=== PATIENT | female | born 1955 | race Caucasian/White ===

== ENCOUNTER 2016-11-16 10:52 | Emergency (ER) | payer OTHER ==
[~2016-11-16] VITALS: Ht 165.1 cm; Wt 75.0 kg
[~2016-11-16 10:52] MED LIST: HYDR-902 PO; LORA1TAB PO; METO10TA92 PO; PANT40TA4 PO; POTA10TA37 PO; SUCR1TAB27 PO
[2016-11-16 11:02] VITALS: Ht 165.1 cm; Wt 75.0 kg
[2016-11-16] MEDS ORDERED: SOD CHLORIDE 0.9% 1,000 ML IV STA (11:29)
[2016-11-16] MEDS ORDERED: ONDANSETRON 4 MG INJ IV STA (11:29)
[2016-11-16] MEDS ORDERED: HYDROmorphONE 1 MG/ML SYG IV STA (11:29)
[2016-11-16 11:58] LABS: ADD SCAN DIFF NO
[2016-11-16 12:09] LABS: BASOPHIL # 0.1 10^3/ul (0.0-0.1); BASOPHILS % 0.3 % (0.0-2.0); HEMATOCRIT 42.6 % (37.0-47.0); HEMOGLOBIN 14.4 g/dl (12.0-16.0); LYMPHOCYTES # 1.2 10^3/ul (0.8-2.9); LYMPHOCYTES % 7.3 % (15.0-51.0); MEAN CORPUSCULAR HEMOGLOBIN 30.1 pg (29.0-33.0); MEAN CORPUSCULAR HGB CONC 33.8 g/dl (32.0-37.0); MEAN CORPUSCULAR VOLUME 88.9 fl (82.0-101.0); MEAN PLATELET VOLUME 9.5 fl (7.4-10.4); MONOCYTE # 0.5 10^3/ul (0.3-0.9); PLATELET COUNT 446 10^3/UL (140-415); RED BLOOD COUNT 4.79 10^6/ul (4.20-5.40); RED CELL DISTRIBUTION WIDTH 14.4 % (11.5-14.5); WHITE BLOOD COUNT 15.7 10^3/ul (4.8-10.8)
[2016-11-16 12:10] LABS: ALBUMIN 5.2 g/dl (3.3-4.9)
[2016-11-16 12:11] LABS: POTASSIUM 3.2 mmol/L (3.5-5.1)
[2016-11-16 12:13] LABS: ALBUMIN/GLOBULIN RATIO 1.67; BILIRUBIN,INDIRECT 0.8 mg/dl (0-1.1); BILIRUBIN,TOTAL 0.8 mg/dl (0.2-1.3); CREATININE 0.69 mg/dl (0.44-1.00); TOTAL PROTEIN 8.3 g/dl (6.1-8.1)
[2016-11-16 12:14] LABS: CALCIUM 10.3 mg/dl (8.4-10.2)
[2016-11-16] MEDS ORDERED: POTASSIUM CHLORIDE (SR) 20 MEQ TAB PO STA (12:50)
[2016-11-16] MEDS ORDERED: ONDA4TAB14 PO (12:52)
[2016-11-16 13:21] VITALS: BP 183/106; PULSE 105; RESP 16; TEMP 98.1
--- NOTE | 2016-11-16 13:54 | ERD ---
ER Documentation Chief Complaint Date/Time DATE: 11/16/16 TIME: 13:47 Chief Complaint SEVERE VOMITING,ABDDOMINAL CRAMPING,HIGH BLOOD PRESSURE HPI 61-year-old woman presents with abdominal cramping, multiple episodes of clear nonbloody nonbilious emesis similar to previous episodes. She does have a long history of cyclic vomiting syndrome and opioid dependence. She denies hematemesis, no blood per rectum, no melena, no chest pain or shortness of breath. ROS All systems reviewed and are negative except as per history of present illness. Medications Home Meds Active Scripts Ondansetron (Ondansetron Odt) 4 Mg Tab.rapdis, 4 MG PO Q6H Y for NAUSEA AND/OR VOMITING, #12 TAB Prov:CB ROSS MD 11/16/16 Discontinued Scripts Lorazepam* (Lorazepam*) 1 Mg Tablet, 1 MG PO Q8H Y for VOMITTING, #10 TAB Prov:TAMARA PACK MD 07/08/16 Potassium Chloride* (K-Dur*) 10 Meq Tab.prt.sr, 10 MEQ PO BID, #10 Prov:TATUM SHEPADR DO 07/07/16 Hydrocodone/Acetaminophen ([place] 10-325 Tablet) 1 Each Tablet, 1 EACH PO Q8, # 20 TAB Prov:TATUM SHEPARD DO 07/07/16 Metoclopramide* (Reglan*) 10 Mg Tablet, 10 MG PO Q6 Y for NAUSEA AND/OR VOMITING , #15 TAB Prov:TATUM SHEPARD DO 07/07/16 Sucralfate (Carafate) 1 Gm Tablet, 1 GM PO QID for 30 Days, TAB Prov:SANDRA GARDNER NP 06/30/16 Pantoprazole* (Pantoprazole*) 40 Mg Tabec, 40 MG PO BID@06,18, #60 TAB 1 Refill Prov:VIC SAUCEDO MD 12/07/15 Allergies Allergies: Coded Allergies: banana (Verified Allergy, Severe, Anaphylactic, 11/16/16) Contact Dermatitis then Anaphylactic Reaction milk (Verified Allergy, Intermediate, Sinus Reaction and Lower Intestinal distress, 11/16/16) tetracycline (Verified Allergy, Mild, 11/16/16) PMhx/Soc Cyclic vomiting syndrome, opioid dependence, chronic pain syndrome, gastritis, anxiety, recurrent hypokalemia History of Surgery: Yes (ortho surgery: plate on right ankle and screws) Anesthesia Reaction: No Hx Neurological Disorder: No Hx Respiratory Disorders: No Hx Cardiac Disorders: No Hx Psychiatric Problems: No Hx Miscellaneous Medical Probl: Yes (cyclic vomiting) Hx Alcohol Use: Yes (occasional) Hx Substance Use: Yes (USE OF MEDICAL MARIJUANA) Hx Tobacco Use: Yes Smoking Status: Current every day smoker FmHx Family History: No diabetes Physical Exam Vitals Vital Signs Date Time Temp Pulse Resp B/P Pulse Ox O2 Delivery O2 Flow Rate FiO2 11/16/16 13:21 98.1 105 16 183/106 100 Room Air 11/16/16 11:02 97.0 100 18 202/112 98 Physical Exam GENERAL: Well-developed, well-nourished, dehydrated HEENT: Dry mucous membranes, pink conjunctiva, no cervical spine tenderness or step-off deformities, no goiter, no jaundice or icterus, extraocular movements intact without pain. No submandibular induration, and no pharyngeal erythema NEURO: Alert and oriented 3, cranial nerves II through XII intact bilaterally, pupils equal round reactive to light, no focal deficits or facial asymmetry, sensation intact distally Strength 5/5 in upper and lower extremities bilaterally CARDIAC: Regular rate and rhythm, no murmurs rubs or gallops LUNGS: Clear bilaterally no wheezing crackles or stridor ABDOMEN: Soft nontender, no guarding, no rigidity, no rebound, no psoas sign no obturator sign. Normoactive bowel sounds SKIN: Warm and dry to touch, no abrasions, contusions, or hematomas, no lacerations, no ecchymosis, no target lesions, and without ulcers EXTREMITIES: No clubbing cyanosis or edema, calves are bilaterally symmetrical, no Homans sign, no popliteal cord sign. Distal pulses equal and bilateral PSYCH: Normal affect without agitation or irritability Result Diagram: 11/16/16 1145 11/16/16 1145 Results 24 hrs Laboratory Tests Test 11/16/16 11:45 White Blood Count 15.710^3/ul Red Blood Count 4.7910^6/ul Hemoglobin 14.4g/dl Hematocrit 42.6% Mean Corpuscular Volume 88.9fl Mean Corpuscular Hemoglobin 30.1pg Mean Corpuscular Hemoglobin Concent 33.8g/dl Red Cell Distribution Width 14.4% Platelet Count 00811^3/UL Mean Platelet Volume 9.5fl Neutrophils % 89.0% Lymphocytes % 7.3% Monocytes % 3.0% Eosinophils % 0.0% Basophils % 0.3% Nucleated Red Blood Cells % 0.0/100WBC Neutrophils # 14.010^3/ul Lymphocytes # 1.210^3/ul Monocytes # 0.510^3/ul Eosinophils # 0.010^3/ul Basophils # 0.110^3/ul Nucleated Red Blood Cells # 0.010^3/ul Sodium Level 146mmol/L Potassium Level 3.2mmol/L Chloride Level 104mmol/L Carbon Dioxide Level 22mmol/L Anion Gap 23 Blood Urea Nitrogen 12mg/dl Creatinine 0.69mg/dl Glucose Level 118mg/dl Calcium Level 10.3mg/dl Total Bilirubin 0.8mg/dl Direct Bilirubin 0.00mg/dl Indirect Bilirubin 0.8mg/dl Aspartate Amino Transf (AST/SGOT) 28IU/L Alanine Aminotransferase (ALT/SGPT) 33IU/L Alkaline Phosphatase 114IU/L Total Protein 8.3g/dl Albumin 5.2g/dl Globulin 3.10g/dl Albumin/Globulin Ratio 1.67 Lipase 122U/L Current Medications Medications (Trade) Dose Ordered Sig/Estee Route PRN Reason Start Time Stop Time Status Last Admin Dose Admin Sodium Chloride (NS) 1,000 ml @ 1,000 mls/hr Q1H STAT IV 11/16/16 11:29 11/16/16 12:28 DC 11/16/16 11:52 Hydromorphone HCl (Dilaudid) 1 mg ONCE STAT IV 11/16/16 11:29 11/16/16 11:30 DC 11/16/16 11:52 Ondansetron HCl (Zofran Inj) 4 mg ONCE STAT IV 11/16/16 11:29 11/16/16 11:30 DC 11/16/16 11:52 Potassium Chloride (Klor-Con 20) 60 meq ONCE STAT PO 11/16/16 12:50 11/16/16 12:52 DC 11/16/16 13:01 Procedures/[facility] IV line was established patient was placed on behavioral consultant rhythm strip revealed a sinus tachycardia at about 100 bpm with upright P and T waves. Patient was afebrile. I administered 1 L normal saline intravenously for dehydration and tachycardia as well as hydromorphone 1 mg IV and Zofran 4 mg IV with good effect. Patient' s pain and tachycardia resolved. CBC revealed a reactive leukocytosis at 16, electrolytes revealed hypokalemia 3.2, liver function tests were normal, lipase was normal. I administered potassium chloride 60 mg p.o. which she tolerated. I reviewed her past medical history and previous imaging studies. Patient has had at least 7 CT scans of the abdomen and pelvis which have been unremarkable. Further CT imaging at this point is contraindicated, I feel the risks at this time outweigh the benefits. Ultrasound or MR imaging is not warranted at this time, and could not be justified, given the patient's physical examination and response to treatment. Abdominal examination was repeated by me after medications were administered and just prior to discharge. Belly is soft she has no rigidity or guarding. I spoke to the patient regarding her workup today although she has chronic recurrent symptoms and will most likely return for continued ED IV therapy. I feel she is seeking admission although at this time I have no indication for any further intervention, imaging, or admission. Differential diagnoses considered, included but not limited to acute coronary syndrome, pulmonary embolism, aortic dissection, abdominal aortic aneurysm, sepsis, stroke, meningitis, encephalitis, pneumonia, appendicitis, cholecystitis , bowel obstruction, pyelonephritis, nephrolithiasis, cystitis, as well as metabolic, hematologic, and electrolyte abnormalities. As well as abscess, cellulitis, fractures, and dislocations. Patient feels much better at this time, and vital signs are normal, symptoms have improved. I did give strict instructions to return to the ED if symptoms continue or worsen, patient will otherwise follow-up with primary care physician. Patient understood instructions and agreed to plan. Departure Diagnosis: Primary Impression: Hypokalemia Additional Impressions: Chronic pain Chronic pain type: chronic pain syndrome Qualified Code: G89.4 - Chronic pain syndrome Cyclic vomiting syndrome Vomiting Intractability: non-intractable Nausea presence: with nausea Qualified Code: G43.A0 - Non-intractable cyclical vomiting with nausea Dehydration Condition: Good Patient Instructions: Hypokalemia, Vomiting (6Y-Adult) CB ROSS MD Nov 16, 2016 13:54
== END 2016-11-16 14:00 | disposition home or self-care (01) ==
LOC: E/R 10:52
DX: E87.6 Hypokalemia (principal); G89.4 Chronic pain syndrome; G43.A0 Cyclical vomiting, in migraine, not intractable; F17.210 Nicotine dependence, cigarettes, uncomplicated
CPT/HCPCS: 36415; 80053; 83690; 85025; 96374; 96375; J1170; J2405; J7030; Z7502; Z7610

== ENCOUNTER 2017-01-21 09:48 | Inpatient (IN) | payer OTHER ==
[~2017-01-21] VITALS: Ht 165.1 cm; Wt 70.0 kg
[~2017-01-21 09:48] MED LIST changes: -HYDR-902 PO; -LORA1TAB PO; -METO10TA92 PO; +ONDA4TAB14 PO; -PANT40TA4 PO; -POTA10TA37 PO; -SUCR1TAB27 PO
[2017-01-21] MEDS ORDERED: HYDROmorphONE 1 MG/ML SYG IV STA (09:57)
[2017-01-21] MEDS ORDERED: SOD CHLORIDE 0.9% 1,000 ML IV STA (09:57)
[2017-01-21] MEDS ORDERED: ONDANSETRON 4 MG INJ IV STA (09:57)
[2017-01-21 10:19] LABS: ADD SCAN DIFF NO
[2017-01-21 10:33] LABS: ABNORMAL IP MESSAGE 1; HEMATOCRIT 43.6 % (37.0-47.0); HEMOGLOBIN 15.5 g/dl (12.0-16.0); MEAN CORPUSCULAR HEMOGLOBIN 30.4 pg (29.0-33.0); MEAN CORPUSCULAR HGB CONC 35.6 g/dl (32.0-37.0); MEAN CORPUSCULAR VOLUME 85.5 fl (82.0-101.0); MEAN PLATELET VOLUME 9.8 fl (7.4-10.4); PLATELET COUNT 467 10^3/UL (140-415); RED CELL DISTRIBUTION WIDTH 13.8 % (11.5-14.5); WHITE BLOOD COUNT 25.2 10^3/ul (4.8-10.8)
[2017-01-21 10:46] LABS: ALBUMIN 5.2 g/dl (3.3-4.9)
[2017-01-21 10:47] LABS: POTASSIUM 3.2 mmol/L (3.5-5.1)
[2017-01-21 10:49] LABS: BILIRUBIN,INDIRECT 0.9 mg/dl (0-1.1); BILIRUBIN,TOTAL 0.9 mg/dl (0.2-1.3); CREATININE 1.23 mg/dl (0.44-1.00)
[2017-01-21 10:50] LABS: ALBUMIN/GLOBULIN RATIO 1.48; CALCIUM 10.1 mg/dl (8.4-10.2); TOTAL PROTEIN 8.7 g/dl (6.1-8.1)
--- NOTE | 2017-01-21 11:06 | ERA ---
ER Documentation Chief Complaint Date/Time DATE: 01/21/17 TIME: 953 Chief Complaint pt bib with c/o vomiting and abd pain since this am hx same HPI 61-year-old female presents the emergency department complaining of epigastric abdominal pain. Patient has a long-standing history of recurrent pancreatitis secondary to alcoholism. Patient states that she continues to drink alcohol. Her last drink was 2 nights ago. She now complains of epigastric abdominal pain that she describes as 10/10. Pain is associated with nonbilious nonbloody emesis. Patient denies any fevers chills. Patient has no diarrhea or urinary symptoms. Patient's pain does not radiate and is similar to what she has had in the past. ROS All systems reviewed and are negative except as per history of present illness. Medications Home Meds Discontinued Scripts Ondansetron (Ondansetron Odt) 4 Mg Tab.rapdis, 4 MG PO Q6H Y for NAUSEA AND/OR VOMITING, #12 TAB Prov:CB ROSS MD 11/16/16 Allergies Allergies: Coded Allergies: banana (Verified Allergy, Severe, Anaphylactic, 01/21/17) Contact Dermatitis then Anaphylactic Reaction milk (Verified Allergy, Intermediate, Sinus Reaction and Lower Intestinal distress, 01/21/17) tetracycline (Verified Allergy, Mild, 01/21/17) PMhx/Soc History of Surgery: No Anesthesia Reaction: No Hx Neurological Disorder: No Hx Respiratory Disorders: No Hx Cardiac Disorders: No Hx Psychiatric Problems: No Hx Miscellaneous Medical Probl: Yes Hx Alcohol Use: No Hx Substance Use: No Hx Tobacco Use: No Smoking Status: Never smoker FmHx Noncontributory for chief complaint Physical Exam Vitals Vital Signs Date Time Temp Pulse Resp B/P Pulse Ox O2 Delivery O2 Flow Rate FiO2 01/21/17 09:50 97.3 78 16 150/81 98 Physical Exam GENERAL: Patient is well-developed well-nourished and appears uncomfortable HEENT: Pupils equal, round, and reactive to light. EOMI. There is no scleral icterus. NECK: C-spine is soft and supple, there is no meningismus. There is no cervical lymphadenopathy. LUNGS: Clear to auscultation bilaterally. There are no rales, wheezes or rhonchi. HEART: Regular rate and rhythm, no murmurs, clicks, rubs or gallops. ABDOMEN: Soft, nondistended. Normal active bowel sounds. Minimal tenderness without peritoneal signs diffusely about the abdomen EXTREMITIES: There is no peripheral cyanosis or edema. No focal swelling or erythema. NEURO: The patient moves all four extremities with 5/5 strength. Cranial nerves II - XII are intact. Normal gait. Alert and oriented SKIN: There is no apparent rash or petechiae. HEME/LYMPHATIC: There is no evidence of excessive bruising or lymphedema. PSYCHIATRIC: The patient does not appear anxious or depressed. Result Diagram: 01/21/17 1005 01/21/17 1005 Results 24 hrs Laboratory Tests Test 01/21/17 10:05 White Blood Count 25.210^3/ul Red Blood Count 5.1010^6/ul Hemoglobin 15.5g/dl Hematocrit 43.6% Mean Corpuscular Volume 85.5fl Mean Corpuscular Hemoglobin 30.4pg Mean Corpuscular Hemoglobin Concent 35.6g/dl Red Cell Distribution Width 13.8% Platelet Count 36033^3/UL Mean Platelet Volume 9.8fl Sodium Level 134mmol/L Potassium Level 3.2mmol/L Chloride Level 89mmol/L Carbon Dioxide Level 30mmol/L Anion Gap 18 Blood Urea Nitrogen 30mg/dl Creatinine 1.23mg/dl Glucose Level 125mg/dl Calcium Level 10.1mg/dl Total Bilirubin 0.9mg/dl Direct Bilirubin 0.00mg/dl Indirect Bilirubin 0.9mg/dl Aspartate Amino Transf (AST/SGOT) 44IU/L Alanine Aminotransferase (ALT/SGPT) 39IU/L Alkaline Phosphatase 109IU/L Total Protein 8.7g/dl Albumin 5.2g/dl Globulin 3.50g/dl Albumin/Globulin Ratio 1.48 Lipase 824U/L Current Medications Medications (Trade) Dose Ordered Sig/Estee Route PRN Reason Start Time Stop Time Status Last Admin Dose Admin Sodium Chloride (NS) 1,000 ml @ 1,000 mls/hr Q1H STAT IV 01/21/17 09:57 01/21/17 10:56 DC 01/21/17 10:17 Hydromorphone HCl (Dilaudid) 1 mg ONCE STAT IV 01/21/17 09:57 01/21/17 09:59 DC 01/21/17 10:15 Ondansetron HCl (Zofran Inj) 4 mg ONCE STAT IV 01/21/17 09:57 01/21/17 09:59 DC 01/21/17 10:15 Procedures/MDM Patient was taken to a room, seen and evaluated. Comfort measures were initiated. Diagnostic tests were ordered and reviewed. 3 LEAD RHYTHM STRIP: Sinus tachycardia RADIOLOGY: reviewed with the radiologist CONSULTATION: hospitalist was notified for admission REEVALUATION: Patient was reevaluated after pain medication. She appear to be somewhat more comfortable. Her labs were reviewed indicating evidence of significant [place]'s criteria and arrangements were made for admission to the hospital. MEDICAL DECISION MAKIN-year-old female with recurrent abdominal pain related to what is been described as cyclic vomiting syndrome, marijuana abuse as well as recurrent episodes of pancreatitis presents to the emergency room with abdominal pain of uncertain etiology. Differential diagnosis entertained was broad and potential high acuity, but ultimately the patient shows evidence of recurrent pancreatitis. Of concern is her significant elevated white blood cell count indicating fairly significant [place]'s criteria. Patient will be admitted to the hospital for further observation, GI rest, monitoring and further treatment. Departure Diagnosis: Primary Impression: Pancreatitis Condition: RPINCESS [place] January 21, 2017 11:06
--- NOTE | 2017-01-21 11:29 | RADRPT ---
PROCEDURE: XR Chest. CLINICAL INDICATION: Abdominal pain, possible aspiration TECHNIQUE: Single frontal view of the chest was obtained COMPARISON: 06/28/2016 FINDINGS: The heart and mediastinum are within normal limits. The lungs are clear. There is no pleural effusion or pneumothorax. The bones and soft tissue show no acute change. IMPRESSION: No acute abnormalities are identified on this single view. RPTAT:AAJJ Physician [place] Date Time Electronically viewed and signed by Stephon Maldonado Physician on 01/21/2017 11:29 BILL/
[2017-01-21] MEDS ORDERED: PANTOPRAZOLE 40 MG INJ IV ONE (11:30)
[2017-01-21] MEDS ORDERED: morphine 2 MG INJ IV PRN (11:30)
[2017-01-21] MEDS ORDERED: ACETAMINOPHEN 325 MG TAB PO PRN (11:30)
[2017-01-21] MEDS ORDERED: MAGNESIUM HYDROXIDE 30ML CUP PO PRN (11:30)
[2017-01-21] MEDS ORDERED: NACL 0.9% 3 ML SYG IV SCH (11:30)
[2017-01-21] MEDS ORDERED: ACETAMINOPHEN 650 MG SUPP PR PRN (11:30)
[2017-01-21] MEDS ORDERED: BISACODYL 10 MG SUPP PR PRN (11:30)
[2017-01-21] MEDS ORDERED: DOCUSATE SODIUM 100 MG CAP PO PRN (11:30)
[2017-01-21] MEDS ORDERED: HYDROCODONE/APAP (5/325) TAB PO PRN ×2 (11:30)
[2017-01-21] MEDS ORDERED: ONDANSETRON 4 MG INJ IV PRN (11:30)
[2017-01-21 13:00] VITALS: TEMP 98.3
[2017-01-21 13:14] VITALS: BP 121/82; PULSE 87; RESP 18
[2017-01-21 13:16] VITALS: Ht 165.1 cm; Wt 70.0 kg
[2017-01-21 15:34] VITALS: BP 103/64; RESP 18
[2017-01-21] MEDS: SOD CHLORIDE 0.9% 1,000 ML IV SCH ×2 (16:00→19:25)
--- NOTE | 2017-01-21 16:11 | HP ---
Date/Time of Note Date/Time of Note DATE: 01/21/17 TIME: 16:02 Assessment/Plan VTE Prophylaxis VTE Prophylaxis Intervention: SCD's Lines/Catheters IV Catheter Type (from [facility]): [place] Urinary Cath still in place: No Assessment/Plan Chief Complaint/Hosp Course Impression and plan 1. Acute pancreatitis. Suspect alcohol induced. Will place on IV hydration. Follow-up on lipase levels. Will advance diet as tolerated. Continue with analgesics as needed for pain. 2. Leukocytosis likely secondary to #1. Afebrile at present. Will monitor for now. 3. Hypokalemia. Will provide with potassium supplement and replete as needed 4. Acute kidney injury. Likely dehydration. Continue IV hydration. Will monitor for now. Admission process 40 minutes Discussed plan of care with Dr. Posadas Problems: HPI/ROS Admit Date/Time Admit Date/Time January 21, 2017 at 11:12 Hx of Present Illness This is a 61-year-old female with no reported past medical history who came to [facility] due to reports of abdominal pain. According to the patient she started to have abdominal pain at 4:30 in the morning on December. She did report having 2 alcoholic beverages with beer on January 19, 2017. She does report that she does drink 2 beers a day but not consistently. She denies any history of dyslipidemia. She did report that she did have some associated nausea and vomiting nonbilious nonbloody. She did report her pain progressively got worse and subsequently went to [facility] for further evaluation. Upon examination she did have a chest x-ray that did show her to have no acute abnormalities. Additionally she did have lab work done that did show her to have a lipase of 824. Also notably she had a potassium of 3.2 and his creatinine of 1.23. She also had some white count of 25.2 although she remained afebrile. Likely inflammatory process. Currently the patient does report no further abdominal pain. She does report feeling little dizzy but no other specific complaints. We will evaluate her for the aformentiond issues ROS 12 point review of systems obtained and entirely negative except that mentioned in the history of present illness PMH/Family/Social Past Medical History Medical History: no pertinent history Past Surgical History Past Surgical Hx: no surgical history, other Family History Significant Family History: no pertinent family hx Social History Alcohol Use: occasionally Smoking Status: Former smoker Drug Use: none Exam/Review of Systems Vital Signs Vitals Vital Signs Date Time Temp Pulse Resp B/P Pulse Ox O2 Delivery O2 Flow Rate FiO2 01/21/17 15:34 98.6 82 18 103/64 94 01/21/17 13:14 Room Air 01/21/17 11:00 2.0 Exam Constitutional: alert, oriented Psych: no complaints Neck: supple, No jvd Respiratory: clear to auscultation, normal air movement Cardiovascular: regular rate and rhythm Gastrointestinal: soft, tender (Minimal) Musculoskeletal: nl extremities to inspection Extremities: normal pulses Labs Result Diagram: 01/21/17 1005 01/21/17 1005 Medications Medications Current Medications Sodium Chloride (NS) 1,000 ml @ 125 mls/hr Q8H IV ; Start 01/21/17 at 11:25 Ondansetron HCl (Zofran Inj) 4 mg Q6H PRN IV NAUSEA AND/OR VOMITING; Start at 11:30 Acetaminophen (Tylenol Tab) 650 mg Q6H PRN PO PAIN LEVEL 1-3 OR FEVER; Start at 11:30 Acetaminophen (Tylenol Supp) 650 mg Q6H PRN MS PAIN LEVEL 1-3 OR FEVER; Start 01/21/17 at 11:30 Acetaminophen/ Hydrocodone Bitart ([place] (5/325)) 1 tab Q6H PRN PO MODERATE PAIN LEVEL 4-6; Start 01/21/17 at 11:30 Acetaminophen/ Hydrocodone Bitart ([place] (5/325)) 2 tab Q6H PRN PO SEVERE PAIN LEVEL 7-10; Start 01/21/17 at 11:30 Morphine Sulfate (morphine) 2 mg Q4H PRN IV SEVERE PAIN LEVEL 7-10; Start 01/21 at 11:30 Docusate Sodium (Colace) 100 mg Q12H PRN PO CONSTIPATION; Start 01/21/17 at 11: 30 Magnesium Hydroxide (Milk Of Mag) 30 ml DAILY PRN PO CONSTIPATION; Start at 11:30 Bisacodyl (Dulcolax Supp) 10 mg DAILY PRN [place] CONSTIPATION; Start 01/21/17 at 11 :30 Pantoprazole 40 mg 40 mg DAILY@06 IV ; Start 01/22/17 at 06:00 Potassium Chloride (KCl 40 MEQ/250 ML NS) 250 ml @ 62.5 mls/hr ONCE ONCE IVPB ; Start 01/21/17 at 16:00; Stop 01/21/17 at 19:59; Status UNV REGIDORSANDRA January 21, 2017 16:11
[2017-01-21] MEDS ORDERED: POTASSIUM CHLORIDE 250 ML IVPB SCH (17:00)
[2017-01-21 19:44] VITALS: BP 100/63; RESP 18
[2017-01-22 00:06] VITALS: BP 128/76; RESP 18
[2017-01-22] MEDS: SOD CHLORIDE 0.9% 1,000 ML IV SCH ×4 (03:25→20:30)
[2017-01-22 04:18] VITALS: BP 125/70; RESP 18
[2017-01-22] MEDS: PANTOPRAZOLE 40 MG INJ IV SCH (05:22)
[2017-01-22 07:18] LABS: ADD UMIC YES; URINE BILIRUBIN (Dip) NEGATIVE (NEGATIVE); URINE BLOOD (Dip) 3+ (NEGATIVE); URINE COLOR LT. YELLOW (YELLOW); URINE GLUCOSE (Dip) NEGATIVE (NEGATIVE); URINE KETONES (Dip) 15 (NEGATIVE); URINE LEUKOCYTE ESTERASE (Dip) NEGATIVE (NEGATIVE); URINE NITRITE (Dip) NEGATIVE (NEGATIVE); URINE TOTAL PROTEIN (Dip) NEGATIVE (NEGATIVE); URINE UROBILINOGEN (Dip) 0.2 E.U./dL (0.1-1.0)
[2017-01-22 07:40] LABS: CALCIUM 8.8 mg/dl (8.4-10.2); CREATININE 0.85 mg/dl (0.44-1.00); MAGNESIUM 2.4 mg/dl (1.7-2.5); PHOSPHORUS 2.6 mg/dl (2.5-4.9); POTASSIUM 3.8 mmol/L (3.5-5.1)
[2017-01-22 07:41] LABS: ALBUMIN 3.8 g/dl (3.3-4.9); ALBUMIN/GLOBULIN RATIO 1.52; CHOL/HDL RATIO 3.2 RATIO; TOTAL PROTEIN 6.3 g/dl (6.1-8.1)
[2017-01-22 07:43] LABS: T3 UPTAKE 39.6 % (23.5-40.5)
[2017-01-22 07:45] LABS: SQUAMOUS EPITHELIAL CELL,UR FEW
[2017-01-22 07:49] VITALS: BP 139/86; RESP 18
[2017-01-22 07:57] LABS: THYROID STIMULATING HORMONE 1.17 MIU/L (0.465-4.680)
[2017-01-22 11:48] VITALS: BP 122/79; RESP 18
--- NOTE | 2017-01-22 15:38 | PN ---
Date/Time of Note Date/Time of Note DATE: 01/22/17 TIME: 15:29 Assessment/Plan VTE Prophylaxis VTE Prophylaxis Intervention: SCD's Lines/Catheters IV Catheter Type (from Nrs): Peripheral IV Urinary Cath still in place: No Assessment/Plan Assessment/Plan 1. Acute pancreatitis, no abdominal pain today, start diet 2. Leukocytosis likely secondary to #1. Afebrile at present. follow up with CBC 3. Hypokalemia. corrected 4. Acute kidney injury. Likely dehydration. resolved Subjective 24 Hr Interval Summary Free Text/Dictation no abdominal pain, no nausea or vomiting. Exam/Review of Systems Vital Signs Vitals Vital Signs Date Time Temp Pulse Resp B/P Pulse Ox O2 Delivery O2 Flow Rate FiO2 01/22/17 11:48 98.7 80 18 122/79 95 01/22/17 10:17 Room Air 01/21/17 11:00 2.0 Exam Constitutional: alert, oriented, well developed Psych: nl mood/affect, no complaints Head: atraumatic, normocephalic Eyes: EOMI, nl conjunctiva, nl lids ENMT: nl external ears & nose, nl lips & teeth, nl nasal mucosa & septum Neck: non-tender, supple Respiratory: clear to auscultation, normal air movement, No congested cough, No crackles/rales, No diminished breath sounds, No intercostal retraction, No labored breathing, No other, No respirations, No tactile fremitus, No wheezing Cardiovascular: nl pulses, regular rate and rhythm, No S3, No S4, No bruits, No diastolic murmur, No edema, No gallop, No irregular rhythm, No jugular venous distention (JVD), No murmurs/extra sounds, No other, No rub, No systolic murmur Gastrointestinal: nl liver, spleen, non-tender, soft, No ascites, No bowel sounds, No distended, No firm, No hepatomegaly, No mass , No other, No rebound or guarding, No splenomegaly, No surgical scars, No tender Musculoskeletal: nl extremities to inspection Extremities: normal pulses, No calf tenderness, No clubbing, No cyanosis, No edema, No other, No palpable cord, No pitting pedal edema, No tenderness Neurological: RECREATIONAL THERAPIST II-XII intact, nl mental status, nl speech, nl strength Skin: nl turgor Lymph: nl lymph nodes Results Result Diagram: 01/21/17 1005 01/22/17 0610 Results 24 hrs Laboratory Tests Test 01/22/17 06:10 Sodium Level 138 Potassium Level 3.8 Chloride Level 99 # Carbon Dioxide Level 28 Anion Gap 15 Blood Urea Nitrogen 18 # Creatinine 0.85 Glucose Level 77 # Hemoglobin A1c 5.8 Calcium Level 8.8 Phosphorus Level 2.6 Magnesium Level 2.4 Total Bilirubin 1.0 Direct Bilirubin 0.00 Indirect Bilirubin 1.0 Aspartate Amino Transf (AST/SGOT) 33 Alanine Aminotransferase (ALT/SGPT) 39 Alkaline Phosphatase 77 Total Protein 6.3 # Albumin 3.8 # Globulin 2.50 Albumin/Globulin Ratio 1.52 Triglycerides Level 215 H Cholesterol Level 199 LDL Cholesterol, Calculated 94 HDL Cholesterol 62 Cholesterol/HDL Ratio 3.2 Thyroid Stimulating Hormone (TSH) 1.170 Free Thyroxine Index 3.13 Thyroxine (T4) 7.9 Triiodothyronine (T3) Uptake 39.6 Medications Medications Current Medications Sodium Chloride (NS) 1,000 ml @ 125 mls/hr Q8H IV Last administered on 10:14; Admin Dose 125 MLS/HR; Start 01/21/17 at 11:25 Ondansetron HCl (Zofran Inj) 4 mg Q6H PRN IV NAUSEA AND/OR VOMITING Last administered on 01/22/17 06:31; Admin Dose 4 MG; Start 01/21/17 at 11:30 Acetaminophen (Tylenol Tab) 650 mg Q6H PRN PO PAIN LEVEL 1-3 OR FEVER; Start at 11:30 Acetaminophen (Tylenol Supp) 650 mg Q6H PRN [place] PAIN LEVEL 1-3 OR FEVER; Start 01/21/17 at 11:30 Acetaminophen/ Hydrocodone Bitart ([place] (5/325)) 1 tab Q6H PRN PO MODERATE PAIN LEVEL 4-6; Start 01/21/17 at 11:30 Acetaminophen/ Hydrocodone Bitart ([place] (5/325)) 2 tab Q6H PRN PO SEVERE PAIN LEVEL 7-10; Start 01/21/17 at 11:30 Morphine Sulfate (morphine) 2 mg Q4H PRN IV SEVERE PAIN LEVEL 7-10; Start 01/21 at 11:30 Docusate Sodium (Colace) 100 mg Q12H PRN PO CONSTIPATION; Start 01/21/17 at 11: 30 Magnesium Hydroxide (Milk Of Mag) 30 ml DAILY PRN PO CONSTIPATION; Start at 11:30 Bisacodyl (Dulcolax Supp) 10 mg DAILY PRN [place] CONSTIPATION; Start 01/21/17 at 11 :30 Pantoprazole (Protonix Iv) 40 mg DAILY@06 IV Last administered on 01/22/17t 05: 22; Admin Dose 40 MG; Start 01/22/17 at 06:00 LOYD BERRIOS MD January 22, 2017 15:38
[2017-01-22 16:26] VITALS: BP 129/79; RESP 18
[2017-01-22 19:48] VITALS: BP 151/69; RESP 16
[2017-01-23] MEDS: SOD CHLORIDE 0.9% 1,000 ML IV SCH (04:40)
[2017-01-23 05:15] LABS: ADD SCAN DIFF NO
[2017-01-23 05:20] LABS: BASOPHILS % 0.3 % (0.0-2.0); EOSINOPHILS # 0.1 10^3/ul (0.0-0.5); EOSINOPHILS % 0.6 % (0.0-7.0); HEMATOCRIT 35.6 % (37.0-47.0); HEMOGLOBIN 12.3 g/dl (12.0-16.0); LYMPHOCYTES # 2.4 10^3/ul (0.8-2.9); MEAN CORPUSCULAR HEMOGLOBIN 31.1 pg (29.0-33.0); MEAN CORPUSCULAR HGB CONC 34.6 g/dl (32.0-37.0); MEAN CORPUSCULAR VOLUME 90.1 fl (82.0-101.0); MEAN PLATELET VOLUME 9.1 fl (7.4-10.4); MONOCYTE # 0.8 10^3/ul (0.3-0.9); MONOCYTES % 8.4 % (0.0-11.0); NEUTROPHIL # 5.7 10^3/ul (1.6-7.5); NEUTROPHILS % 63.3 % (39.0-77.0); PLATELET COUNT 353 10^3/UL (140-415); RED BLOOD COUNT 3.95 10^6/ul (4.20-5.40); RED CELL DISTRIBUTION WIDTH 13.5 % (11.5-14.5)
[2017-01-23 05:39] LABS: POTASSIUM 3.6 mmol/L (3.5-5.1)
[2017-01-23 05:42] LABS: CREATININE 0.67 mg/dl (0.44-1.00)
[2017-01-23 05:43] LABS: CALCIUM 8.4 mg/dl (8.4-10.2)
[2017-01-23] MEDS: PANTOPRAZOLE 40 MG INJ IV SCH (06:29)
[2017-01-23 07:35] VITALS: BP 132/88; RESP 18
--- NOTE | 2017-01-23 11:15 | PDOCDIS ---
Discharge Instructions CONDITION Patient Condition: Good HOME CARE INSTRUCTIONS: Diet Instructions: RegularSpecial Diet: CLEAR LIQUID ACTIVITY: Activity Restrictions: No Restrictions FOLLOW UP/APPOINTMENTS Appointments Follow up with your primary care physician within 7 days and please abstain from drinking alcohol. SCHOOL/WORK RELEASE May return to School/Work with: No Restrictions JULES GOEL MD January 23, 2017 11:15
--- NOTE | 2017-01-23 11:21 | DS ---
Date/Time of Note Date/Time of Note DATE: 01/23/17 TIME: 11:15 Discharge Summary Admission/Discharge Info Admit Date/Time January 21, 2017 at 11:12 Discharge Date/Time Final Diagnosis acute pancreatitis Patient Condition: Good Consults none Procedures CXR 28: wnl Hx of Present Illness This is a 61-year-old female with no reported past medical history who came to [facility] due to reports of abdominal pain. According to the patient she started to have abdominal pain at 4:30 in the morning on December. She did report having 2 alcoholic beverages with beer on January 19, 2017. She does report that she does drink 2 beers a day but not consistently. She denies any history of dyslipidemia. She did report that she did have some associated nausea and vomiting nonbilious nonbloody. She did report her pain progressively got worse and subsequently went to [facility] for further evaluation. Upon examination she did have a chest x-ray that did show her to have no acute abnormalities. Additionally she did have lab work done that did show her to have a lipase of 824. Also notably she had a potassium of 3.2 and his creatinine of 1.23. She also had some white count of 25.2 although she remained afebrile. Likely inflammatory process. Currently the patient does report no further abdominal pain. She does report feeling little dizzy but no other specific complaints. Hospital Course For pt's pancreatitis, she was started on IV fluids. Lipase level improved from 800s on admission to 100s on date of discharge. Pt with leukocytosis to 20s on admission, resolved without antibiotics. Pt with RODOLFO on admission, resolved with IVFs. Pt tolerating PO without difficulty on date of discharge. Suspect etiology of pt's pancreatitis is EtOH in origin. Pt advised to abstain from alcohol. No new meds. Home Meds Discontinued Scripts Ondansetron (Ondansetron Odt) 4 Mg Tab.rapdis, 4 MG PO Q6H Y for NAUSEA AND/OR VOMITING, #12 TAB Prov:CB ROSS MD 11/16/16 Follow-up Plan Follow up with PCP within 7 days Primary Care Provider Alexandria Kelsey Time spent on discharge: > 30 minutes Pending Labs Laboratory Tests Test 01/23/17 04:26 White Blood Count 9.010^3/ul (4.8-10.8) Red Blood Count 3.9510^6/ul (4.20-5.40) Hemoglobin 12.3g/dl (12.0-16.0) Hematocrit 35.6% (37.0-47.0) Mean Corpuscular Volume 90.1fl (82.0-101.0) Mean Corpuscular Hemoglobin 31.1pg (29.0-33.0) Mean Corpuscular Hemoglobin Concent 34.6g/dl (32.0-37.0) Red Cell Distribution Width 13.5% (11.5-14.5) Platelet Count 03710^3/UL (140-415) Mean Platelet Volume 9.1fl (7.4-10.4) Neutrophils % 63.3% (39.0-77.0) Lymphocytes % 27.0% (15.0-51.0) Monocytes % 8.4% (0.0-11.0) Eosinophils % 0.6% (0.0-7.0) Basophils % 0.3% (0.0-2.0) Nucleated Red Blood Cells % 0.0/100WBC (0.0-0.0) Neutrophils # 5.710^3/ul (1.6-7.5) Lymphocytes # 2.410^3/ul (0.8-2.9) Monocytes # 0.810^3/ul (0.3-0.9) Eosinophils # 0.110^3/ul (0.0-0.5) Basophils # 0.010^3/ul (0.0-0.1) Nucleated Red Blood Cells # 0.010^3/ul (0.0-0.0) Sodium Level 140mmol/L (135-144) Potassium Level 3.6mmol/L (3.5-5.1) Chloride Level 112mmol/L (97-110) Carbon Dioxide Level 25mmol/L (21-31) Anion Gap 7 (8-16) Blood Urea Nitrogen 8mg/dl (7-20) Creatinine 0.67mg/dl (0.44-1.00) Glucose Level 81mg/dl (70-220) Calcium Level 8.4mg/dl (8.4-10.2) Lipase 171U/L (23-300) JULES GOEL MD January 23, 2017 11:21
== END 2017-01-23 12:30 | disposition home or self-care (01) | DRG 439 ==
LOC: E/R 09:48 → MS4 11:12 → MS1 01-22 19:25
PROVIDERS: ADMIT Hospitalist; ATTEND Hospitalist
DX: K85.90 Acute pancreatitis without necrosis or infection, unspecified (principal); N17.9 Acute kidney failure, unspecified; D72.829 Elevated white blood cell count, unspecified; E87.6 Hypokalemia; E86.0 Dehydration; Z87.891 Personal history of nicotine dependence
CPT/HCPCS: 36415; 71010; 80048; 80053; 80061; 80306; 81001; 83036; 83690; 83735; 84100; 84436; 84443; 84479; 85025; 87040; 87086; 96374; 96375; C9113; J1170; J2405; J3480; J7030

== ENCOUNTER 2017-03-10 09:13 | Observation (INO) | payer OTHER ==
[~2017-03-10] VITALS: Ht 165.1 cm; Wt 75.0 kg
[2017-03-10] MEDS ORDERED: SOD CHLORIDE 0.9% 1,000 ML IV STA (09:31)
[2017-03-10] MEDS ORDERED: morphine 4 MG/ML VIAL IV STA (09:31)
[2017-03-10] MEDS ORDERED: METOCLOPRAMIDE 10 MG INJ IV STA (09:31)
[2017-03-10 09:43] LABS: ADD SCAN DIFF NO
[2017-03-10 09:47] LABS: ABNORMAL IP MESSAGE 1; BASOPHIL # 0.1 10^3/ul (0.0-0.1); BASOPHILS % 0.3 % (0.0-2.0); HEMATOCRIT 42.4 % (37.0-47.0); LYMPHOCYTES # 0.8 10^3/ul (0.8-2.9); LYMPHOCYTES % 3.6 % (15.0-51.0); MEAN CORPUSCULAR HEMOGLOBIN 31.3 pg (29.0-33.0); MEAN CORPUSCULAR HGB CONC 35.4 g/dl (32.0-37.0); MEAN CORPUSCULAR VOLUME 88.5 fl (82.0-101.0); MEAN PLATELET VOLUME 9.6 fl (7.4-10.4); MONOCYTES % 4.4 % (0.0-11.0); NEUTROPHIL # 20.6 10^3/ul (1.6-7.5); NEUTROPHILS % 91.1 % (39.0-77.0); PLATELET COUNT 464 10^3/UL (140-415); RED BLOOD COUNT 4.79 10^6/ul (4.20-5.40); RED CELL DISTRIBUTION WIDTH 13.5 % (11.5-14.5); WHITE BLOOD COUNT 22.6 10^3/ul (4.8-10.8)
[2017-03-10 09:55] LABS: ADD UMIC YES; UR BILIRUBIN (Dip) NEGATIVE (NEGATIVE); UR BLOOD (Dip) 3+ (NEGATIVE); UR CLARITY CLEAR (CLEAR); UR COLOR LT. YELLOW (YELLOW); UR KETONES (Dip) 1+ (NEGATIVE); UR LEUKOCYTE ESTERASE (Dip) NEGATIVE (NEGATIVE); UR NITRITE (Dip) NEGATIVE (NEGATIVE); UR TOTAL PROTEIN (Dip) 2+ (NEGATIVE); UR UROBILINOGEN (Dip) 0.2 E.U./dL (0.1-1.0)
[2017-03-10 10:24] LABS: ALBUMIN 5.6 g/dl (3.3-4.9); ALBUMIN/GLOBULIN RATIO 1.64; BILIRUBIN,INDIRECT 0.6 mg/dl (0-1.1); BILIRUBIN,TOTAL 0.6 mg/dl (0.2-1.3); CREATININE 0.72 mg/dl (0.44-1.00)
[2017-03-10 10:28] LABS: POTASSIUM 2.8 mmol/L (3.5-5.1)
[2017-03-10 10:30] VITALS: TEMP 98.1
[2017-03-10 10:36] LABS: TROPONIN-I 0.012 ng/ml (0.00-0.12)
[2017-03-10] MEDS ORDERED: POTASSIUM CHLORIDE 250 ML IVPB ONE (11:00)
--- NOTE | 2017-03-10 11:01 | ERA ---
ER Documentation Chief Complaint Date/Time DATE: 03/10/17 TIME: 10:58 Chief Complaint ABD PAIN WITH N/V SINCE THIS MORNING HPI 61-year-old female with a history of cyclical vomiting syndrome presenting to the ER with nausea and vomiting since this morning associated with epigastric abdominal pain. The pain is 10 out of 10, sharp, stabbing, nonradiating. She has nonbloody and nonbilious vomiting. No constipation, diarrhea, fever, chills , dysuria, chest pain or shortness of breath. She denies any headache or dizziness. She does complain of tingling in her extremities and generalized weakness. ROS All systems reviewed and are negative except as per history of present illness. Medications Home Meds No Active Prescriptions or Reported Meds Allergies Allergies: Coded Allergies: banana (Verified Allergy, Severe, Anaphylactic, 01/21/17) Contact Dermatitis then Anaphylactic Reaction milk (Verified Allergy, Intermediate, Sinus Reaction and Lower Intestinal distress, 01/21/17) tetracycline (Verified Allergy, Mild, 01/21/17) PMhx/Soc History of Surgery: Yes (tonsillectomy, right ankle, left leg) Anesthesia Reaction: No Hx Neurological Disorder: No Hx Respiratory Disorders: No Hx Cardiac Disorders: No Hx Psychiatric Problems: No Hx Miscellaneous Medical Probl: Yes (pt stated hypermobility syndrome anmd chronic ankle problems) Hx Alcohol Use: Yes (2 beers/day but not every day ) Hx Substance Use: Yes (pt stated medical marijuana) Hx Tobacco Use: No (previous smoker (7 years) ) Smoking Status: Never smoker FmHx Family History: No diabetes Physical Exam Vitals Vital Signs Date Time Temp Pulse Resp B/P Pulse Ox O2 Delivery O2 Flow Rate FiO2 03/10/17 12:41 135 15 97 Room Air 03/10/17 12:32 124 17 155/112 99 Room Air 03/10/17 10:30 98.1 118 17 162/100 100 Room Air 03/10/17 09:14 99.1 112 18 224/113 99 Physical Exam Const: Appears fatigued, no diaphoresis, no significant distress Head: Atraumatic Eyes: Normal Conjunctiva, PERRLA, EOMI ENT: Dry mucous membranes Neck: Full range of motion..~ No meningismus. Resp: Clear to auscultation bilaterally Cardio: Regular rate and rhythm, no murmurs Abd: Soft, non tender, non distended. No hepatosplenomegaly. No masses palpated. Normal bowel sounds Skin: No petechiae or rashes Back: No midline or flank tenderness Ext: No cyanosis, or edema Neur: Awake and alert Psych: Normal Mood and Affect Result Diagram: 03/10/1792903/10/17929 Results 24 hrs Laboratory Tests Test 03/10/17 09:30 White Blood Count 22.610^3/ul Red Blood Count 4.7910^6/ul Hemoglobin 15.0g/dl Hematocrit 42.4% Mean Corpuscular Volume 88.5fl Mean Corpuscular Hemoglobin 31.3pg Mean Corpuscular Hemoglobin Concent 35.4g/dl Red Cell Distribution Width 13.5% Platelet Count 78170^3/UL Mean Platelet Volume 9.6fl Neutrophils % 91.1% Lymphocytes % 3.6% Monocytes % 4.4% Eosinophils % 0.0% Basophils % 0.3% Nucleated Red Blood Cells % 0.0/100WBC Neutrophils # 20.610^3/ul Lymphocytes # 0.810^3/ul Monocytes # 1.010^3/ul Eosinophils # 0.010^3/ul Basophils # 0.110^3/ul Nucleated Red Blood Cells # 0.010^3/ul Urine Color LT. YELLOW Urine Clarity CLEAR Urine pH 6.5 Urine Specific [place] 1.020 Urine Ketones 1+ Urine Nitrite NEGATIVE Urine Bilirubin NEGATIVE Urine Urobilinogen 0.2 E.U./dL Urine Leukocyte Esterase NEGATIVE Urine Microscopic RBC 5-10/HPF Urine Hemoglobin 3+ Urine Glucose 0.25%% Urine Total Protein 2+ Sodium Level 145mmol/L Potassium Level 2.8mmol/L Chloride Level 93mmol/L Carbon Dioxide Level 21mmol/L Anion Gap 34 Blood Urea Nitrogen 11mg/dl Creatinine 0.72mg/dl Glucose Level 173mg/dl Calcium Level 10.0mg/dl Total Bilirubin 0.6mg/dl Direct Bilirubin 0.00mg/dl Indirect Bilirubin 0.6mg/dl Aspartate Amino Transf (AST/SGOT) 36IU/L Alanine Aminotransferase (ALT/SGPT) 21IU/L Alkaline Phosphatase 98IU/L Troponin I 0.012ng/ml Total Protein 9.0g/dl Albumin 5.6g/dl Globulin 3.40g/dl Albumin/Globulin Ratio 1.64 Lipase 73U/L Urine Opiates Screen Positive Urine Barbiturates Negative Urine Amphetamines Screen Negative Urine Benzodiazepines Screen Negative Urine Cocaine Screen Negative Urine Cannabinoids Positive Current Medications Medications (Trade) Dose Ordered Sig/Estee Route PRN Reason Start Time Stop Time Status Last Admin Dose Admin Sodium Chloride (NS) 1,000 ml @ 1,000 mls/hr Q1H STAT IV 03/10/17 09:31 03/10/17 10:30 DC 03/10/17 09:50 Morphine Sulfate (morphine) 4 mg ONCE STAT IV 03/10/17 09:31 03/10/17 09:33 DC 03/10/17 09:46 Metoclopramide HCl 10 mg 10 mg ONCE STAT IV 03/10/17 09:31 03/10/17 09:33 DC 03/10/17 09:46 Potassium Chloride (KCl 40 MEQ/250 ML NS) 250 ml @ 62.5 mls/hr ONCE ONCE IVPB 03/10/17 11:00 03/10/17 14:59 03/10/17 11:50 Ondansetron HCl (Zofran Inj) 4 mg BRIDGE ORDER PRN IV NAUSEA AND/OR VOMITING 03/10/17 12:00 03/11/17 11:59 Acetaminophen (Tylenol Tab) 650 mg ER BRIDGE PRN PO MILD PAIN/FEVER 03/10/17 12:00 03/11/17 11:59 Hydromorphone HCl (Dilaudid) 1 mg ONCE STAT IV 03/10/17 12:29 03/10/17 12:31 DC 03/10/17 12:41 Ondansetron HCl (Zofran Inj) 4 mg ONCE STAT IV 03/10/17 12:29 03/10/17 12:31 DC 03/10/17 12:41 Famotidine (Pepcid Iv) 20 mg ONCE STAT IV 03/10/17 12:29 03/10/17 12:31 DC 03/10/17 12:41 Metoprolol Tartrate (Lopressor) 5 mg Q8 PRN IV SBP>160 03/10/17 13:00 UNV Procedures/MDM EKG: Rate/Rhythm: Sinus tachycardia at 111 bpm QRS, ST, T-waves: Nonspecific T-wave abnormality, no changes consistent w/ acute ischemia Impression: No evidence of ischemia or arrhythmia Labs CBC: Leukocytosis, elevated platelet count CMP: Mild hypernatremia and hypochloremia, hypokalemia, no evidence of renal failure, hypoglycemia, liver failure, or biliary obstruction Lipase: no evidence of pancreatitis Troponin within normal limits, at upper limit of normal UA: no evidence of infection MDM Patient is presenting with acute exacerbation of her vomiting. Her symptoms are typical of her cyclical vomiting.. IV fluids were started. Reglan and morphine are given for her symptoms. She had minimal relief. She required more pain medications. I do not suspect acute surgical abdomen at this time. I do not suspect acute coronary syndrome, ischemic bowel or aortic dissection. Her vitals are notable for tachycardia, likely secondary to her pain and dehydration. Her labs showed evidence of leukocytosis and hypokalemia. However her EKG does not show changes consistent with hypokalemia. IV potassium supplementation was initiated. I have a low suspicion for severe sepsis or septic shock. She does have an elevated anion gap, which is likely secondary to dehydration from her vomiting. I do not think she needs antibiotics at this time. However she will require admission for intractable nausea and vomiting, hydration and treatment of her hypokalemia. Patient will be admitted to [facility]. I think she is hemodynamically stable and does not require telemetry monitoring. Accepting Care Team: Current data and ongoing care discussed. Time: Time of admission Primary Provider: Valentin Consulting: none Outstanding Data: none Departure Diagnosis: Primary Impression: Intractable abdominal pain Additional Impressions: Vomiting Qualified Code: G43.A0 - Non-intractable cyclical vomiting with nausea Hypokalemia Condition: Serious EMELY YANG MD Mar 10, 2017 11:01
--- NOTE | 2017-03-10 11:09 | RADRPT ---
PROCEDURE: Chest x-ray CLINICAL INDICATION: Abdominal pain TECHNIQUE: Chest single view COMPARISON: 01/21/2017 FINDINGS: The heart is normal in size. The pulmonary vessels are normal in caliber. The lungs are clear. Th e costophrenic angles are sharp. The visualized bony thorax is unremarkable. IMPRESSION: No acute cardiopulmonary disease. RPTAT: HH .Clemente Patterson MD, Date Time Electronically viewed and signed by .Clemente Patterson MD, on 03/10/2017 11:08 .W/
[2017-03-10] MEDS ORDERED: ONDANSETRON 4 MG INJ IV PRN (12:00)
[2017-03-10] MEDS ORDERED: ACETAMINOPHEN 325 MG TAB PO PRN ×2 (12:00→13:00)
[2017-03-10] MEDS ORDERED: FAMOTIDINE 20 MG INJ IV STA (12:29)
[2017-03-10] MEDS ORDERED: ONDANSETRON 4 MG INJ IV STA (12:29)
[2017-03-10] MEDS ORDERED: HYDROmorphONE 1 MG/ML SYG IV STA (12:29)
[2017-03-10 12:31] LABS: OPIATES Positive (NEGATIVE)
[2017-03-10 12:36] LABS: BARBITURATES Negative (NEGATIVE); BENZODIAZEPINES Negative (NEGATIVE); CANNABINOIDS Positive (NEGATIVE); COCAINE Negative (NEGATIVE)
--- NOTE | 2017-03-10 12:45 | HP ---
Date/Time of Note Date/Time of Note DATE: 03/10/17 TIME: 12:44 Assessment/Plan VTE Prophylaxis VTE Prophylaxis Intervention: LMWH Assessment/Plan Chief Complaint/Hosp Course 1. Cyclic vomiting secondary to cannabinoid hyperemesis syndrome. The patient will be provided with adequate antiemetics. Patient will be followed with IV hydration. The patient will be given pain control for her abdominal pain. 2. Anion gap metabolic acidosis. Most probably secondary to multiple episodes of vomiting. The patient will be adequately hydrated. 3. Systemic inflammatory response syndrome with leukocytosis and sinus tachycardia. Patient remains afebrile. Most probably noninfectious in origin. We will adequately hydrate the patient. 4. Hypokalemia. Most probably secondary to persistent vomiting. Will replete potassium. Will obtain a serum magnesium level. 5. Hypertension. The patient denied any history of hypertension. Patient was started on PRN antihypertensives for high blood pressure readings. PRN beta- blockers will be started since the patient also had underlying sinus tachycardia. 6. Substance abuse. Cessation will be advised. Plan: The patient will be admitted to inpatient floor. The patient will be started on a clear liquid diet. The patient will be started on DVT prophylaxis and gastrointestinal prophylaxis. The patient will remain a full code. Activities will be as tolerated. The rest of the patient's management will be based on the clinical course and the results of diagnostic studies. Based on the patient's clinical presentation, he most probably requires at least 1 midnight's stay for further management and evaluation of his clinical presentation. The case and management of this patient was fully discussed with Dr. Hanson. Problems: HPI/ROS Admit Date/Time Admit Date/Time Hx of Present Illness This is a 61-year-old female with past medical history of gastric ulcers, substance abuse and cyclic vomiting secondary to cannabinoid hyperemesis syndrome who came to the emergency room with chief complaint of multiple episodes of nausea and vomiting that started on the morning on 03/10/2017. The patient also verbalized epigastric abdominal pain that was rated 10 out of 10 and described as sharp, stabbing, and nonradiating. The patient verbalized the vomiting as nonbilious and nonbloody. The patient also verbalized a few episodes of diarrhea. Patient denied any fevers, chills, chest pain, dysuria, or hematuria. In the emergency room, the patient was noticed to have significant leukocytosis with WBC of 22.6. Patient also had a underlying anion gap acidosis and hypokalemia. The patient's urine drug screen was positive for cannabinoids. The patient was also noticed a sinus tachycardia with the hypertension with a blood pressure as high as 224/113. The patient denied any history of essential hypertension. Nevertheless, the patient verbalized that her blood pressure goes high during attacks of cannabinoid hyperemesis syndrome. ROS Constitutional: nausea Eyes: no complaints ENT: no complaints Respiratory: shortness of breath Cardiovascular: no complaints Gastrointestinal: diarrhea, nausea, pain, vomiting Genitourinary: no complaints Musculoskeletal: bone/joint pain (Bilateral ankle) Skin: no complaints Neurologic: no complaints Endocrine: no complaints Lymphatic: no complaints Psychological: no complaints Immunologic: no complaints PMH/Family/Social Past Medical History 1. Cyclic vomiting secondary to cannabinoid hyperemesis syndrome. 3. Alcohol abuse. 3. Pulmonary nodules. 4. Gastric ulcers. 5. Substance abuse. Past Surgical History Past Surgical Hx: other Social History Smoking Status: Never smoker Exam/Review of Systems Vital Signs Vitals Vital Signs Date Time Temp Pulse Resp B/P Pulse Ox O2 Delivery O2 Flow Rate FiO2 03/10/17 12:41 135 15 97 Room Air 03/10/17 10:30 98.1 Exam Exam General: Adequately build 61 year-old female lying in bed in no apparent distress. HEENT: Normocephalic, atraumatic. Eyes: Anicteric sclerae, conjunctivae clear. ENT: Nasal septum midline, oral mucosa is dry. Neck supple, no JVD noticed. Respiratory: Bilaterally clear breath sounds. No use of accessory muscles of respiration. No adventitious breath sounds. Cardiovascular: S1, S2 heard. No murmurs or gallops. Sinus tachycardia. Abdomen: Soft and nondistended. Diffuse tenderness. Genitourinary: Deferred. Extremities: No cyanosis, no clubbing, no edema. Peripheral pulses palpable. Neurologic: Cranial nerves II through XII grossly intact. The patient is awake, alert, and oriented. Skin: Normal skin turgor. No skin rashes. Labs Result Diagram: 03/10/1792903/10/17929 Medications Medications Current Medications Potassium Chloride (KCl 40 MEQ/250 ML NS) 250 ml @ 62.5 mls/hr ONCE ONCE IVPB Last administered on 03/10/17t 11:50; Admin Dose 62.5 MLS/HR; Start 03/10/17 at 11:00; Stop 03/10/17 at 14:59 Metoprolol Tartrate (Lopressor) 5 mg Q8 PRN IV SBP>160; Start 03/10/17 at 13:00 ; Status UNV SANDRA GARDNER NP Mar 10, 2017 12:45 SANDRA GARDNER NP Mar 10, 2017 12:45
[2017-03-10] MEDS: SOD CHLORIDE 0.9% 1,000 ML IV SCH (12:53)
[2017-03-10] MEDS ORDERED: NACL 0.9% 3 ML SYG IV SCH (13:00)
[2017-03-10] MEDS ORDERED: METOPROLOL 5 MG INJ IV PRN (13:00)
[2017-03-10 13:40] LABS: MAGNESIUM 1.7 mg/dl (1.7-2.5)
[2017-03-10 14:12] LABS: THYROID STIMULATING HORMONE 1.07 MIU/L (0.465-4.680)
[2017-03-10 14:22] LABS: CHOL/HDL RATIO 3.1 RATIO
[2017-03-10] MEDS ORDERED: POTASSIUM CHLORIDE 250 ML IVPB SCH (16:00)
[2017-03-10 16:29] VITALS: BP 114/59; PULSE 89; RESP 20
[2017-03-10] MEDS ORDERED: MAGNESIUM SULFATE 2 GM/50 ML 50 ML IVPB ONE (18:00)
[2017-03-10] MEDS ORDERED: AL HYDROX/MG HYDROX/SIMETH 30 ML CUP PO PRN (20:00)
[2017-03-10 20:40] VITALS: BP 132/79; RESP 20
[2017-03-11] MEDS: SOD CHLORIDE 0.9% 1,000 ML IV SCH ×4 (00:09→20:43)
[2017-03-11] MEDS: PROCHLORPERAZINE 10 MG INJ IV PRN ×4 (00:34→20:43)
[2017-03-11] MEDS: morphine 2 MG INJ IV PRN ×4 (00:37→18:25)
[2017-03-11] MEDS: HYDROCODONE/APAP (5/325) TAB PO PRN ×2 (00:56→14:12)
[2017-03-11] MEDS: ONDANSETRON 4 MG INJ IV PRN ×3 (01:04→14:31)
[2017-03-11 02:00] VITALS: BP 117/68; RESP 20
[2017-03-11] MEDS: PANTOPRAZOLE 40 MG INJ IV SCH (05:31)
[2017-03-11 06:24] LABS: ADD SCAN DIFF NO
[2017-03-11 06:28] LABS: BASOPHIL # 0.1 10^3/ul (0.0-0.1); BASOPHILS % 0.4 % (0.0-2.0); EOSINOPHILS % 0.1 % (0.0-7.0); HEMATOCRIT 36.5 % (37.0-47.0); HEMOGLOBIN 12.6 g/dl (12.0-16.0); LYMPHOCYTES # 2.6 10^3/ul (0.8-2.9); LYMPHOCYTES % 17.1 % (15.0-51.0); MEAN CORPUSCULAR HEMOGLOBIN 31.2 pg (29.0-33.0); MEAN CORPUSCULAR HGB CONC 34.5 g/dl (32.0-37.0); MEAN CORPUSCULAR VOLUME 90.3 fl (82.0-101.0); MEAN PLATELET VOLUME 9.5 fl (7.4-10.4); MONOCYTE # 1.4 10^3/ul (0.3-0.9); MONOCYTES % 8.9 % (0.0-11.0); NEUTROPHIL # 11.3 10^3/ul (1.6-7.5); PLATELET COUNT 353 10^3/UL (140-415); RED BLOOD COUNT 4.04 10^6/ul (4.20-5.40); RED CELL DISTRIBUTION WIDTH 13.9 % (11.5-14.5); WHITE BLOOD COUNT 15.5 10^3/ul (4.8-10.8)
[2017-03-11 06:36] LABS: ALBUMIN 4.4 g/dl (3.3-4.9); ALBUMIN/GLOBULIN RATIO 2.09; BILIRUBIN,INDIRECT 0.9 mg/dl (0-1.1); BILIRUBIN,TOTAL 0.9 mg/dl (0.2-1.3); CALCIUM 8.6 mg/dl (8.4-10.2); CREATININE 0.7 mg/dl (0.44-1.00); POTASSIUM 3.8 mmol/L (3.5-5.1); TOTAL PROTEIN 6.5 g/dl (6.1-8.1)
[2017-03-11 06:57] LABS: MAGNESIUM 2.4 mg/dl (1.7-2.5); PHOSPHORUS 2.9 mg/dl (2.5-4.9)
[2017-03-11 08:18] VITALS: BP 110/60; RESP 18
[2017-03-11] MEDS: ENOXAPARIN 40 MG/0.4 ML SYG SC SCH (08:22)
--- NOTE | 2017-03-11 10:22 | PN ---
Date/Time of Note Date/Time of Note DATE: 03/11/17 TIME: 10:19 Assessment/Plan VTE Prophylaxis VTE Prophylaxis Intervention: other Lines/Catheters IV Catheter Type (from Nrs): Peripheral IV Assessment/Plan Problems: (1) Acute hypokalemia Status: Acute Comment: Repleted successfully. (2) Migraine syndrome Status: Chronic Comment: The patient does have history of migraine and has 2 first-degree relatives with migraine syndrome. I am not certain that her cyclical disc vomiting disorder is an equivalent of migraine. However she may be a candidate for prophylactic therapy which might help with this and might also help with the chronic pain in her ankles (3) Osteoarthritis of both ankles Status: Chronic Comment: Noted. 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 Constitutional: no complaints (No fevers chills or sweats) Eyes: no complaints ENT: no complaints Respiratory: no complaints Cardiovascular: no complaints Gastrointestinal: nausea Neurologic: headache (Positive headaches and the patient does have a history of migraine disorder she denies any scintillating scotomata or other autonomic symptoms) Exam/Review of Systems Vital Signs Vitals Vital Signs Date Time Temp Pulse Resp B/P Pulse Ox O2 Delivery O2 Flow Rate FiO2 03/11/17 08:18 98.7 70 18 110/60 98 03/10/17 16:29 Room Air 03/10/17 14:28 2.0 Intake and Output 03/10/17 03/10/17 03/11/17 15:00 23:00 07:00 Intake Total 850 ml 2350 ml Output Total 250 ml Balance 850 ml 2100 ml Exam Constitutional: alert, oriented Neck: non-tender, supple Respiratory: clear to auscultation, normal air movement Cardiovascular: nl pulses, regular rate and rhythm Gastrointestinal: nl liver, spleen, non-tender, soft Extremities: other (Bilateral significant arthritic changes of both ankles worse on the right) Results Result Diagram: 03/11/17 0549 03/11/17 0549 Results 24 hrs Laboratory Tests Test 03/11/17 05:49 White Blood Count 15.5 #H Red Blood Count 4.04 L Hemoglobin 12.6 Hematocrit 36.5 L Mean Corpuscular Volume 90.3 Mean Corpuscular Hemoglobin 31.2 Mean Corpuscular Hemoglobin Concent 34.5 Red Cell Distribution Width 13.9 Platelet Count 353 # Mean Platelet Volume 9.5 Neutrophils % 73.0 Lymphocytes % 17.1 Monocytes % 8.9 Eosinophils % 0.1 Basophils % 0.4 Nucleated Red Blood Cells % 0.0 Neutrophils # 11.3 H Lymphocytes # 2.6 Monocytes # 1.4 H Eosinophils # 0.0 Basophils # 0.1 Nucleated Red Blood Cells # 0.0 Sodium Level 141 Potassium Level 3.8 Chloride Level 101 Carbon Dioxide Level 26 Anion Gap 18 #H Blood Urea Nitrogen 11 Creatinine 0.70 Glucose Level 98 # Calcium Level 8.6 Phosphorus Level 2.9 Magnesium Level 2.4 Total Bilirubin 0.9 Direct Bilirubin 0.00 Indirect Bilirubin 0.9 Aspartate Amino Transf (AST/SGOT) 30 Alanine Aminotransferase (ALT/SGPT) 30 Alkaline Phosphatase 69 Total Protein 6.5 # Albumin 4.4 # Globulin 2.10 Albumin/Globulin Ratio 2.09 Amylase Level 44 Lipase 45 Medications Medications Current Medications Metoprolol Tartrate 5 mg 5 mg Q8H PRN IV SBP>160; Start 03/10/17 at 13:00 Sodium Chloride (NS) 1,000 ml @ 100 mls/hr Q10H IV Last administered on 00:09; Admin Dose 100 MLS/HR; Start 03/10/17 at 12:53 Ondansetron HCl (Zofran Inj) 4 mg Q6H PRN IV NAUSEA AND/OR VOMITING Last administered on 03/11/17 08:42; Admin Dose 4 MG; Start 03/10/17 at 13:00 Acetaminophen (Tylenol Tab) 650 mg Q6H PRN PO PAIN LEVEL 1-3 OR FEVER Last administered on 03/11/17 08:17; Admin Dose 650 MG; Start 03/10/17 at 13:00 Acetaminophen/ Hydrocodone Bitart (Hamel (5/325)) 1 tab Q6H PRN PO PAIN LEVEL 4 -6 Last administered on 03/11/17 00:56; Admin Dose 1 TAB; Start 03/10/17 at 13: 00 Morphine Sulfate (morphine) 2 mg Q4H PRN IV PAIN LEVEL 7-10 Last administered on 03/11/17 08:47; Admin Dose 2 MG; Start 03/10/17 at 13:00 Pantoprazole (Protonix Iv) 40 mg DAILY@06 IV Last administered on 03/11/17 05: 31; Admin Dose 40 MG; Start 03/11/17 at 06:00 Enoxaparin Sodium (Lovenox) 40 mg DAILY SC Last administered on 03/11/17 08:22 ; Admin Dose 40 MG; Start 03/11/17 at 09:00 Prochlorperazine (Compazine Inj) 5 mg Q4H PRN IV NAUSEA AND/OR VOMITING Last administered on 03/11/17 00:34; Admin Dose 5 MG; Start 03/10/17 at 13:00 Al Hydrox/Mg Hydrox/Simethicone (Mag-Al Plus) 30 ml Q6H PRN PO GASTROINTESTINAL UPSET Last administered on 03/10/17 20:13; Admin Dose 30 ML; Start 03/10/17 at 20:00 HEMANT NICHOLS MD Mar 11, 2017 10:22
[2017-03-11 14:31] VITALS: BP 120/83; RESP 18
[2017-03-11] MEDS ORDERED: KETOROLAC 30 MG INJ IV STA (15:38)
[2017-03-11] MEDS ORDERED: ONDANSETRON 4 MG INJ IV PRN (16:00)
[2017-03-11 20:48] VITALS: BP 119/67; RESP 20
[2017-03-11] MEDS ORDERED: DIVALPROEX (ER) 500 MG TAB PO SCH (21:00)
[2017-03-12 02:59] VITALS: BP 124/79; RESP 18
[2017-03-12] MEDS: PANTOPRAZOLE 40 MG INJ IV SCH (05:19)
[2017-03-12] MEDS: SOD CHLORIDE 0.9% 1,000 ML IV SCH ×2 (05:21→17:14)
[2017-03-12 08:00] VITALS: BP 148/70; RESP 20
[2017-03-12] MEDS: ENOXAPARIN 40 MG/0.4 ML SYG SC SCH (08:32)
--- NOTE | 2017-03-12 13:00 | RADRPT ---
PROCEDURE: HIDA scan CLINICAL INDICATION: 61 -year-old patient with abdominal pain. TECHNIQUE: Following the intravenous injection of 7.4 mCi of Tc-99m mebrofenin, multiple images of the abdomen were obtained up to 55 minutes post injection. COMPARISON: No prior studies. FINDINGS: The liver is promptly visualized, demonstrates homogeneous distribution of radionuclide. There is visualization of the common bile duct, gallbladder and gastrointestinal activity within nor mal time. IMPRESSION: No definite evidence to suggest the presence of common bile or cystic ducts obstruction. RPTAT: HH .Neyda Segal MD, MD Date Time Electronically viewed and signed by .Neyda Segal MD, MD on 03/12/2017 12:59 .L/
--- NOTE | 2017-03-12 18:29 | PDOCDIS ---
Discharge Instructions DIAGNOSIS Discharge Diagnosis nausea and vomiting CONDITION Patient Condition: Stable HOME CARE INSTRUCTIONS: Diet Instructions: RegularSpecial Diet: Clear liquidYour diet recommendation is: slowly titrate up from liquid to solid diet ACTIVITY: Activity Restrictions: No Restrictions FOLLOW UP/APPOINTMENTS Follow-up Plan Please follow up with your primary care provider as soon as possible SCHOOL/WORK RELEASE May return to School/Work on: Mar 13, 2017 May return to School/Work with: No Restrictions CB VERA Mar 12, 2017 18:29
[2017-03-12] MEDS ORDERED: PANT40TA3 PO (18:38)
[2017-03-12] MEDS ORDERED: METO10TA96 PO (18:38)
--- NOTE | 2017-03-12 18:53 | DS ---
Date/Time of Note Date/Time of Note DATE: 03/12/17 TIME: 18:51 Discharge Summary Admission/Discharge Info Admit Date/Time Mar 10, 2017 at 11:42 Discharge Date/Time Discharge Diagnosis nausea and vomiting Hypokalemia Nausea Vomiting Migraine Osteoarthritis Marijuana abuse Dehydration Metabolic acidosis Hypertension Hx of Present Illness This is a 61-year-old female with past medical history of gastric ulcers, substance abuse and cyclic vomiting secondary to cannabinoid hyperemesis syndrome who came to the emergency room with chief complaint of multiple episodes of nausea and vomiting that started on the morning on 03/10/2017. The patient also verbalized epigastric abdominal pain that was rated 10 out of 10 and described as sharp, stabbing, and nonradiating. The patient verbalized the vomiting as nonbilious and nonbloody. The patient also verbalized a few episodes of diarrhea. Patient denied any fevers, chills, chest pain, dysuria, or hematuria. In the emergency room, the patient was noticed to have significant leukocytosis with WBC of 22.6. Patient also had a underlying anion gap acidosis and hypokalemia. The patient's urine drug screen was positive for cannabinoids. The patient was also noticed a sinus tachycardia with the hypertension with a blood pressure as high as 224/113. The patient denied any history of essential hypertension. Nevertheless, the patient verbalized that her blood pressure goes high during attacks of cannabinoid hyperemesis syndrome. Hospital Course Patient is a 61-year-old female with past medical history of chronic nausea, gastric ulcers, cyclic vomiting secondary to cannabinoid hyperemesis syndrome who presented to [facility] for nausea and vomiting. Patient was admitted into the medicine service and was evaluated and given electrolytes as well as fluids. Patient also underwent HIDA scan which did not show any definite evidence to suggest presence of common bile or cystic duct obstruction. At this time patient is able to tolerate liquids and is not nauseated and feels well enough to go home. Although the diagnosis of her nausea and vomiting is not definite, it is was explained to the patient that her chronic cannabinoid use may play a part in her chronic nausea as it is been present for over 30 years. Patient will not be discharged with Depakote as her migraines are only once or twice every few months. Patient is to follow-up with her primary care provider soon as possible. Patient was discharged with Reglan and Protonix. Home Meds Active Scripts Pantoprazole* (Protonix*) 40 Mg Tablet.dr, 40 MG PO DAILY for 30 Days, #30 TAB Prov:CB VERA 03/12/17 Metoclopramide Hcl* (Metoclopramide Hcl*) 10 Mg Tablet, 10 MG PO Q12 for NAUSEA for 7 Days, #14 TAB Prov:CB VERA 03/12/17 Primary Care Provider Not On Staff Doctor Time spent on discharge: > 30 minutes CB VERA Mar 12, 2017 18:53
== END 2017-03-12 19:30 | disposition home or self-care (01) ==
LOC: E/R 09:13 → PP2 11:42 → UNDOADMOB 14:22 → PP2 15:30
PROVIDERS: ADMIT Family Medicine; ATTEND Family Medicine
DX: R11.2 Nausea with vomiting, unspecified (principal); E87.6 Hypokalemia; G43.909 Migraine, unspecified, not intractable, without status migrainosus; M19.90 Unspecified osteoarthritis, unspecified site; F12.10 Cannabis abuse, uncomplicated; E86.0 Dehydration; E87.2 Acidosis; I10 Essential (primary) hypertension; Z88.1 Allergy status to other antibiotic agents; Z91.018 Allergy to other foods; Z91.011 Allergy to milk products; Z87.891 Personal history of nicotine dependence
CPT/HCPCS: 36415; 71010; 78226; 80053; 80061; 80307; 81001; 82150; 83036; 83690; 83735; 84100; 84439; 84443; 84484; 85025; 93005; 96365; 96366; 96375; A9537; C9113; J1170; J1650; J1885; J2270; J2405; J2765; J3475; J3480; J7030; Z7500; Z7502; Z7610; G0378

== ENCOUNTER 2017-03-14 10:57 | Emergency (ER) | payer OTHER ==
[~2017-03-14] VITALS: Ht 162.6 cm; Wt 65.0 kg
[~2017-03-14 10:57] MED LIST changes: +METO10TA96 PO; -ONDA4TAB14 PO; +PANT40TA3 PO
[2017-03-14 11:00] VITALS: Ht 162.6 cm; Wt 65.0 kg
[2017-03-14] MEDS ORDERED: ONDANSETRON 4 MG INJ IV STA (11:40)
[2017-03-14] MEDS ORDERED: SOD CHLORIDE 0.9% 1,000 ML IV STA (11:40)
[2017-03-14] MEDS ORDERED: FAMOTIDINE 20 MG INJ IV STA (11:40)
[2017-03-14] MEDS ORDERED: morphine 4 MG/ML VIAL IV STA (11:40)
[2017-03-14] MEDS ORDERED: CAPSAICIN 0.025% 60 GM CR TOP STA (11:42)
[2017-03-14 12:03] LABS: ADD SCAN DIFF NO
[2017-03-14 12:14] LABS: BASOPHILS % 0.2 % (0.0-2.0); HEMOGLOBIN 14.8 g/dl (12.0-16.0); LYMPHOCYTES # 0.7 10^3/ul (0.8-2.9); MEAN CORPUSCULAR HGB CONC 36.1 g/dl (32.0-37.0); MEAN CORPUSCULAR VOLUME 85.8 fl (82.0-101.0); MEAN PLATELET VOLUME 9.4 fl (7.4-10.4); MONOCYTE # 0.6 10^3/ul (0.3-0.9); MONOCYTES % 3.4 % (0.0-11.0); NEUTROPHIL # 16.3 10^3/ul (1.6-7.5); NEUTROPHILS % 91.6 % (39.0-77.0); PLATELET COUNT 452 10^3/UL (140-415); RED BLOOD COUNT 4.78 10^6/ul (4.20-5.40); RED CELL DISTRIBUTION WIDTH 13.1 % (11.5-14.5); WHITE BLOOD COUNT 17.9 10^3/ul (4.8-10.8)
[2017-03-14 12:21] LABS: ALBUMIN 5.1 g/dl (3.3-4.9); ALBUMIN/GLOBULIN RATIO 1.54; BILIRUBIN,INDIRECT 1.2 mg/dl (0-1.1); BILIRUBIN,TOTAL 1.2 mg/dl (0.2-1.3); CREATININE 0.74 mg/dl (0.44-1.00); TOTAL PROTEIN 8.4 g/dl (6.1-8.1)
[2017-03-14] MEDS ORDERED: POTASSIUM CHLORIDE (SR) 20 MEQ TAB PO STA (12:41)
[2017-03-14 12:42] LABS: POTASSIUM 2.7 mmol/L (3.5-5.1)
[2017-03-14] MEDS ORDERED: POTASSIUM CHLORIDE (SR) 10 MEQ TAB PO ONE (13:00)
[2017-03-14] MEDS ORDERED: POTASSIUM CHLORIDE 50 ML IVPB ONE (13:00)
[2017-03-14] MEDS ORDERED: LORAZEPAM 2 MG INJ IV ONE (14:00)
[2017-03-14 14:20] LABS: ADD UMIC YES; UR ASCORBIC ACID NEGATIVE (NEGATIVE); UR BILIRUBIN (Dip) NEGATIVE (NEGATIVE); UR BLOOD (Dip) 3+ mg/dL (NEGATIVE); UR CLARITY CLEAR (CLEAR); UR COLOR YELLOW (YELLOW); UR GLUCOSE (Dip) 1+ mg/dL (NEGATIVE); UR KETONES (Dip) 2+ mg/dL (NEGATIVE); UR LEUKOCYTE ESTERASE (Dip) NEGATIVE Leu/ul (NEGATIVE); UR MUCUS FEW /HPF (NONE SEEN); UR NITRITE (Dip) NEGATIVE (NEGATIVE); UR RBC 47 /HPF (0-5); UR SPECIFIC GRAVITY (Dip) 1.011 (1.003-1.030); UR TOTAL PROTEIN (Dip) 2+ mg/dl (NEGATIVE); UR UROBILINOGEN (Dip) NEGATIVE (NEGATIVE)
[2017-03-14 15:19] VITALS: BP 118/77; PULSE 68; RESP 18
--- NOTE | 2017-03-14 15:50 | ERD ---
ER Documentation Chief Complaint Date/Time DATE: 03/14/17 TIME: 15:47 Chief Complaint ABD PAIN WITH VOMITING HPI This is a 61-year-old female with a history of hyperemesis syndrome who presents to the emergency room for evaluation of abdominal cramping, nausea, vomiting. The patient states that she has been seen in the emergency room previously for similar complaints. She states that Dilaudid helps her symptoms and she denies any blood in her stool or in her vomit. ROS All systems reviewed and are negative except as per history of present illness. Medications Home Meds Discontinued Scripts Pantoprazole* (Protonix*) 40 Mg Tablet.dr, 40 MG PO DAILY for 30 Days, #30 TAB Prov:CB VERA 03/12/17 Metoclopramide Hcl* (Metoclopramide Hcl*) 10 Mg Tablet, 10 MG PO Q12 for NAUSEA for 7 Days, #14 TAB Prov:CB VERA 03/12/17 Allergies Allergies: Coded Allergies: banana (Verified Allergy, Severe, Anaphylactic, 03/14/17) Contact Dermatitis then Anaphylactic Reaction milk (Verified Allergy, Intermediate, Sinus Reaction and Lower Intestinal distress, 03/14/17) tetracycline (Verified Allergy, Mild, 03/14/17) PMhx/Soc History of Surgery: Yes (bilateral legs metal screw placed, TONSILLECTOMY) Anesthesia Reaction: No Hx Neurological Disorder: No (infrequent migraines ) Hx Respiratory Disorders: No (eva fever?) Hx Cardiac Disorders: No Hx Psychiatric Problems: No Hx Miscellaneous Medical Probl: No Hx Alcohol Use: Yes (weekend drinker ) Hx Substance Use: Yes (medicinal marijuana ) Hx Tobacco Use: No Smoking Status: Never smoker Physical Exam Vitals Vital Signs Date Time Temp Pulse Resp B/P Pulse Ox O2 Delivery O2 Flow Rate FiO2 03/14/17 15:19 68 18 118/77 99 Room Air 03/14/17 13:30 87 18 168/98 99 Room Air 03/14/17 11:00 98.2 118 18 201/120 99 Physical Exam INITIAL VITAL SIGNS: Reviewed by me GENERAL: The patient is well developed and appropriate for usual state of health in no apparent distress HEENT: Dry mucous membranes, pupils equal, round, and reactive to light. EOMI. There is no scleral icterus. NECK: C-spine is soft and supple, there is no meningismus. There is no cervical lymphadenopathy. LUNGS: Clear to auscultation bilaterally. There are no rales, wheezes or rhonchi. HEART: Regular rate and rhythm, no murmurs, clicks, rubs or gallops. ABDOMEN: Soft, non-tender, non-distended. There are bowel sounds in all four quadrants. No rebound or guarding. EXTREMITIES: There is no peripheral cyanosis or edema. No focal swelling or erythema. NEUROLOGICAL: The patient moves all four extremities with 5/5 strength. Cranial nerves II - XII are intact. Normal gait. Alert and oriented SKIN: There is no apparent rash or petechiae. HEME/LYMPHATIC: There is no evidence of excessive bruising or lymphedema. PSYCHIATRIC: The patient does not appear anxious or depressed. Result Diagram: 03/14/17 1156 03/14/17 1156 Results 24 hrs Laboratory Tests Test 03/14/17 11:56 03/14/17 13:58 White Blood Count 17.910^3/ul Red Blood Count 4.7810^6/ul Hemoglobin 14.8g/dl Hematocrit 41.0% Mean Corpuscular Volume 85.8fl Mean Corpuscular Hemoglobin 31.0pg Mean Corpuscular Hemoglobin Concent 36.1g/dl Red Cell Distribution Width 13.1% Platelet Count 57590^3/UL Mean Platelet Volume 9.4fl Neutrophils % 91.6% Lymphocytes % 4.0% Monocytes % 3.4% Eosinophils % 0.0% Basophils % 0.2% Nucleated Red Blood Cells % 0.0/100WBC Neutrophils # 16.310^3/ul Lymphocytes # 0.710^3/ul Monocytes # 0.610^3/ul Eosinophils # 0.010^3/ul Basophils # 0.010^3/ul Nucleated Red Blood Cells # 0.010^3/ul Sodium Level 142mmol/L Potassium Level 2.7mmol/L Chloride Level 94mmol/L Carbon Dioxide Level 23mmol/L Anion Gap 28 Blood Urea Nitrogen 10mg/dl Creatinine 0.74mg/dl Glucose Level 177mg/dl Calcium Level 10.0mg/dl Total Bilirubin 1.2mg/dl Direct Bilirubin 0.00mg/dl Indirect Bilirubin 1.2mg/dl Aspartate Amino Transf (AST/SGOT) 35IU/L Alanine Aminotransferase (ALT/SGPT) 38IU/L Alkaline Phosphatase 94IU/L Total Protein 8.4g/dl Albumin 5.1g/dl Globulin 3.30g/dl Albumin/Globulin Ratio 1.54 Lipase 75U/L Urine Color YELLOW Urine Clarity CLEAR Urine pH 7.0 Urine Specific [place] 1.011 Urine Ketones 2+mg/dL Urine Nitrite NEGATIVEmg/dL Urine Bilirubin NEGATIVEmg/dL Urine Urobilinogen NEGATIVEmg/dL Urine Leukocyte Esterase NEGATIVELeu/ul Urine Microscopic RBC 47/HPF Urine Microscopic WBC 3/HPF Urine Mucus FEW/HPF Urine Hemoglobin 3+mg/dL Urine Glucose 1+mg/dL Urine Total Protein 2+mg/dl Current Medications Medications (Trade) Dose Ordered Sig/Estee Route PRN Reason Start Time Stop Time Status Last Admin Dose Admin Sodium Chloride (NS) 1,000 ml @ 1,000 mls/hr Q1H STAT IV 03/14/17 11:40 03/14/17 12:39 DC 03/14/17 12:02 Morphine Sulfate (morphine) 4 mg ONCE STAT IV 03/14/17 11:40 03/14/17 11:41 DC 03/14/17 12:02 Ondansetron HCl (Zofran Inj) 4 mg ONCE STAT IV 03/14/17 11:40 03/14/17 11:41 DC 03/14/17 12:02 Famotidine (Pepcid Iv) 20 mg ONCE STAT IV 03/14/17 11:40 03/14/17 11:41 DC 03/14/17 12:02 Capsaicin (Theragen) 0.025 applic ONCE STAT TOP 03/14/17 11:42 03/14/17 11:48 DC 03/14/17 11:42 Potassium Chloride (Klor-Con 20) 40 meq ONCE STAT PO 03/14/17 12:41 03/14/17 12:42 DC 03/14/17 12:45 Potassium Chloride 10 meq 10 meq ONCE ONCE PO 03/14/17 13:00 03/14/17 13:01 DC 03/14/17 13:49 Potassium Chloride (KCl 10 MEQ/50 ML SW) 50 ml @ 50 mls/hr ONCE ONCE IVPB 03/14/17 13:00 03/14/17 13:59 DC 03/14/17 14:01 Lorazepam (Ativan) 1 mg ONCE ONCE IV 03/14/17 14:00 03/14/17 14:01 DC 03/14/17 13:49 Procedures/MDM This 51-year-old female presents to the ER for evaluation of abdominal cramping , nausea and vomiting. The patient does have a history of hyperemesis and cyclical vomiting syndrome. When I evaluated this patient she had dry mucous membranes. I did obtain lab work. The patient was given Zofran, Pepcid, and I did apply capsaicin cream to her abdomen. The patient did have a potassium of 2.7. She was given 60 mg once a potassium by mouth and 10 mg once via IV. The patient has not vomited since receiving her medications and those that she is feeling better. She received 1 L fluids. Her heart rate is now 92 bpm and she is hemodynamically stable. The patient will be discharged at this time with a prescription for 3 tabs of 0.5 mg Ativan and referral for gastroenterology. The patient does smoke marijuana advised to discontinue use of marijuana as it can exacerbate her symptoms. Smoking Cessation Therapy: Pt. was lectured for greater than 3 minutes on the health risks of continued smoking and the benefits of cessation. Departure Diagnosis: Primary Impression: Acute vomiting Additional Impressions: Mild dehydration Acute hypokalemia Condition: Stable KELLEY PEREIRA DO Mar 14, 2017 15:50
[2017-03-14] MEDS ORDERED: LORA-441 PO ×2 (15:51→15:52)
== END 2017-03-14 16:00 | disposition home or self-care (01) ==
LOC: E/R 10:57
DX: R11.10 Vomiting, unspecified (principal); E86.0 Dehydration; E87.6 Hypokalemia
CPT/HCPCS: 36415; 80053; 81001; 83690; 85025; 96374; 96375; J2060; J2270; J2405; J3480; J7030; Z7502; Z7610

== ENCOUNTER 2017-03-16 04:28 | Emergency (ER) | payer OTHER ==
[~2017-03-16] VITALS: Ht 165.1 cm; Wt 65.9 kg
[~2017-03-16 04:28] MED LIST changes: +LORA-441 PO; -METO10TA96 PO; -PANT40TA3 PO
[2017-03-16 04:38] VITALS: Ht 165.1 cm; Wt 65.9 kg
[2017-03-16] MEDS ORDERED: HYDROmorphONE 1 MG/ML SYG IV STA (05:01)
[2017-03-16] MEDS ORDERED: METOCLOPRAMIDE 10 MG INJ IV STA (05:01)
[2017-03-16] MEDS ORDERED: SOD CHLORIDE 0.9% 1,000 ML IV STA (05:01)
[2017-03-16] MEDS ORDERED: FAMOTIDINE 20 MG INJ IV STA (05:01)
--- NOTE | 2017-03-16 05:04 | ERD ---
ER Documentation Chief Complaint Date/Time DATE: 03/16/17 TIME: 05:02 Chief Complaint vomiting/abdominal pain x 2 1/2 hours HPI Patient is a 61-year-old female who presents with sudden onset, constant, moderate to severe epigastric pain associated with multiple episodes of vomiting since earlier in the evening. She reports a few episodes of diarrhea. She denies dark stool. She denies bloody emesis. Patient reports a 30 year history of cyclic vomiting syndrome, and reports that she was seen in the ER yesterday for similar symptoms, as well as being admitted to the hospital for 2 days over the weekend for similar symptoms. She drinks a few alcoholic drinks on occasion, and smokes marijuana, but states that her last marijuana use was 1 week ago. She states that her symptoms respond well to Compazine or Reglan and Dilaudid. ROS All systems reviewed and are negative except as per history of present illness. Medications Home Meds Active Scripts Lorazepam* (Ativan*) 0.5 Mg Tablet, 0.5 MG PO Q8H Y for VOMITTING, #5 TAB Prov:KELLEY PEREIRA DO 03/14/17 Discontinued Scripts Lorazepam* (Ativan*) 0.5 Mg Tablet, 0.5 MG PO Q8H Y for ANXIETY, #10 TAB Prov:KELLEY PEREIRA DO 03/14/17 Pantoprazole* (Protonix*) 40 Mg Tablet.dr, 40 MG PO DAILY for 30 Days, #30 TAB Prov:CB VERA 03/12/17 Metoclopramide Hcl* (Metoclopramide Hcl*) 10 Mg Tablet, 10 MG PO Q12 for NAUSEA for 7 Days, #14 TAB Prov:CB VERA 03/12/17 Allergies Allergies: Coded Allergies: banana (Verified Allergy, Severe, Anaphylactic, 03/14/17) Contact Dermatitis then Anaphylactic Reaction milk (Verified Allergy, Intermediate, Sinus Reaction and Lower Intestinal distress, 03/14/17) tetracycline (Verified Allergy, Mild, 03/14/17) PMhx/Soc Past medical history: Cyclic vomiting syndrome Past surgical history: Left leg, tonsils Social history: Drinks alcohol occasionally, smokes marijuana History of Surgery: Yes (bilateral legs metal screw placed, TONSILLECTOMY) Anesthesia Reaction: No Hx Neurological Disorder: No (infrequent migraines ) Hx Respiratory Disorders: No (eva fever?) Hx Cardiac Disorders: No Hx Psychiatric Problems: No Hx Miscellaneous Medical Probl: No Hx Alcohol Use: Yes (weekend drinker ) Hx Substance Use: Yes (medicinal marijuana ) Hx Tobacco Use: No FmHx Family History: No coronary disease, No diabetes Physical Exam Vitals Vital Signs Date Time Temp Pulse Resp B/P Pulse Ox O2 Delivery O2 Flow Rate FiO2 03/16/17 05:56 100 20 193/109 100 Room Air 03/16/17 04:38 99.1 120 20 199/118 98 Physical Exam Const: Alert, mild distress Head: Atraumatic Eyes: Normal Conjunctiva, no pallor, no icterus ENT: Normal External Ears, Nose and Mouth. Tacky mucous membranes Neck: Full range of motion..~ No meningismus. Resp: Clear to auscultation bilaterally, no wheezes, no rales Cardio: Regular rate and rhythm, no murmurs Abd: Soft, nondistended, mild tenderness in the epigastrium only, no guarding or rebound Skin: No petechiae or rashes Back: No midline or flank tenderness Ext: No cyanosis, or edema Neur: Awake and alert, cranial nerves II through XII intact bilaterally, strength and sensation full in 4 extremities. Psych: Normal Mood and Affect Result Diagram: 03/16/17 0450 Results 24 hrs Laboratory Tests Test 03/16/17 04:50 White Blood Count 12.110^3/ul Red Blood Count 4.6410^6/ul Hemoglobin 14.4g/dl Hematocrit 39.7% Mean Corpuscular Volume 85.6fl Mean Corpuscular Hemoglobin 31.0pg Mean Corpuscular Hemoglobin Concent 36.3g/dl Red Cell Distribution Width 13.2% Platelet Count 24207^3/UL Mean Platelet Volume 10.1fl Neutrophils % 75.8% Lymphocytes % 14.8% Monocytes % 8.3% Eosinophils % 0.2% Basophils % 0.3% Neutrophils # 9.210^3/ul Lymphocytes # 1.810^3/ul Monocytes # 1.010^3/ul Eosinophils # 0.010^3/ul Basophils # 0.010^3/ul Nucleated Red Blood Cells # 0.010^3/ul Current Medications Medications (Trade) Dose Ordered Sig/Estee Route PRN Reason Start Time Stop Time Status Last Admin Dose Admin Sodium Chloride (NS) 1,000 ml @ 1,000 mls/hr Q1H STAT IV 03/16/17 05:01 03/16/17 06:00 DC 03/16/17 05:14 Hydromorphone HCl (Dilaudid) 1 mg ONCE STAT IV 03/16/17 05:01 03/16/17 05:03 DC 03/16/17 05:14 Metoclopramide HCl (Reglan) 10 mg ONCE STAT IV 03/16/17 05:01 03/16/17 05:03 DC 03/16/17 05:14 Famotidine (Pepcid Iv) 20 mg ONCE STAT IV 03/16/17 05:01 03/16/17 05:03 DC 03/16/17 05:14 Dicyclomine HCl (Bentyl) 10 mg ONCE ONCE IM 03/16/17 05:30 03/16/17 05:31 DC Procedures/MDM EKG read by me: Time 0453, rate 117 Rhythm: Sinus tachycardia [place]: Normal Intervals: Normal ST-T waves: Nonspecific ST-T wave changes in inferior leads only Ectopy: No Q-waves: No Impression: Sinus tachycardia with nonspecific changes in inferior leads, no obvious ischemia. MDM: Patient is a 61-year-old female with history of cyclical vomiting syndrome for 30 years who presents with an episode is typical of her cyclical vomiting. She complains of epigastric pain. She has elevated blood pressure and tachycardia, which she states is usual for her episodes. She denies hypertension at baseline. She was given IV fluids, Reglan and Dilaudid. She is also given a trial of Bentyl. The patient has had recent admission to the hospital and subsequent ER visit for the same symptoms. She denies recent marijuana use, which is been associated with prior episodes. She did request Dilaudid specifically, and requested that it be administered rapidly, which suggests some potential element of drug-seeking behavior. I do believe that she has an underlying gastrointestinal condition given her previous electrolyte abnormalities. Laboratory tests are pending at this time, so the patient will be signed out to Dr. Abarca to review the lab tests and reevaluate the patient for ability to tolerate oral intake and adequate resolution of symptoms. Disposition will be based upon Dr. Abarca's discretion of the patient's clinical status and test results. Departure Diagnosis: Primary Impression: Vomiting Vomiting type: cyclical vomiting Vomiting Intractability: unspecified Nausea presence: with nausea Qualified Code: G43.A0 - Cyclical vomiting with nausea, intractability of vomiting not specified Additional Impressions: Abdominal pain Abdominal location: epigastric Qualified Code: R10.13 - Epigastric pain Elevated blood pressure reading Condition: OSWALDO Sparks MD Mar 16, 2017 05:04
[2017-03-16] MEDS ORDERED: DICYCLOMINE 20 MG INJ IM ONE (05:30)
[2017-03-16 05:46] LABS: ADD SCAN DIFF NO
[2017-03-16 05:56] LABS: BASOPHILS % 0.3 % (0.0-2.0); EOSINOPHILS % 0.2 % (0.0-7.0); HEMATOCRIT 39.7 % (37.0-47.0); HEMOGLOBIN 14.4 g/dl (12.0-16.0); LYMPHOCYTES # 1.8 10^3/ul (0.8-2.9); LYMPHOCYTES % 14.8 % (15.0-51.0); MEAN CORPUSCULAR HGB CONC 36.3 g/dl (32.0-37.0); MEAN CORPUSCULAR VOLUME 85.6 fl (82.0-101.0); MEAN PLATELET VOLUME 10.1 fl (7.4-10.4); MONOCYTES % 8.3 % (0.0-11.0); NEUTROPHIL # 9.2 10^3/ul (1.6-7.5); NEUTROPHILS % 75.8 % (39.0-77.0); PLATELET COUNT 441 10^3/UL (140-415); RED BLOOD COUNT 4.64 10^6/ul (4.20-5.40); RED CELL DISTRIBUTION WIDTH 13.2 % (11.5-14.5); WHITE BLOOD COUNT 12.1 10^3/ul (4.8-10.8)
[2017-03-16 06:16] LABS: ALBUMIN 4.7 g/dl (3.3-4.9); ALBUMIN/GLOBULIN RATIO 1.51; BILIRUBIN,INDIRECT 0.5 mg/dl (0-1.1); BILIRUBIN,TOTAL 0.5 mg/dl (0.2-1.3); CALCIUM 10.2 mg/dl (8.4-10.2); CREATININE 0.81 mg/dl (0.44-1.00); TOTAL PROTEIN 7.8 g/dl (6.1-8.1)
[2017-03-16 06:30] LABS: POTASSIUM 2.8 mmol/L (3.5-5.1)
[2017-03-16] MEDS ORDERED: POTASSIUM CHLORIDE (SR) 20 MEQ TAB PO STA ×2 (06:50)
[2017-03-16 07:00] VITALS: BP 120/78; PULSE 85; RESP 20
[2017-03-16] MEDS ORDERED: ONDA4TAB11 PO (10:39)
[2017-03-16] MEDS ORDERED: METO10TA92 PO (10:39)
--- NOTE | 2017-03-16 10:44 | EN ---
Date/Time of Note Date/Time of Note DATE: 03/16/17 TIME: 10:43 ER Progress Note The laboratories and disposition was signed out to me of this patient. She is feeling much better after sleeping for an hour. She feels safe and comfortable to go home. I am discharging with Melissa is care follow-up in 2 3 days and return precautions. She did have a low potassium and replaced it with 60 mg of K-Dur. She is to follow-up with her primary care doctor for repeat potassium level HEMANT BOWLING DO Mar 16, 2017 10:43
== END 2017-03-16 10:50 | disposition home or self-care (01) ==
LOC: E/R 04:28
DX: G43.A0 Cyclical vomiting, in migraine, not intractable (principal); R10.13 Epigastric pain; R03.0 Elevated blood-pressure reading, without diagnosis of hypertension
CPT/HCPCS: 80053; 83690; 85025; J0500; J1170; J2765; J7030; Z7610; 36415; 96372; 96374; 96375

== ENCOUNTER 2017-11-16 15:36 | Emergency (ER) | END 2017-11-16 18:03 | disposition home or self-care (01) ==

== ENCOUNTER 2018-03-08 07:20 | Emergency (ER) | END 2018-03-08 12:42 | disposition home or self-care (01) ==

== ENCOUNTER 2018-03-29 08:26 | Inpatient (IN) | END 2018-03-31 16:40 | disposition home or self-care (01) | DRG 440 ==

== ENCOUNTER 2018-05-09 15:13 | Emergency (ER) | END 2018-05-09 19:47 | disposition left against medical advice (07) ==

== ENCOUNTER 2018-12-04 11:43 | Inpatient (IN) | payer OTHER ==
[~2018-12-04] VITALS: Ht 152.4 cm; Wt 63.7 kg
[~2018-12-04 11:43] MED LIST changes: +DIC20 PO; +HYDR-3601 PO; +METO10TA92 PO; +ONDA4TAB11 PO; +ONDA4TAB8 PO; +PANT40TA3 PO
[2018-12-04] MEDS ORDERED: ONDANSETRON 4 MG INJ IV STA (12:12)
[2018-12-04] MEDS ORDERED: KETOROLAC 15 MG INJ IV STA (12:12)
[2018-12-04] MEDS ORDERED: LACTATED RINGER'S 1,000 ML IV STA (12:12)
--- NOTE | 2018-12-04 12:47 | ERD ---
ER Documentation Chief Complaint Chief Complaint BIB RA FOR EVAL OF N/V X 3 DAYS. HPI This is a 63-year-old woman with a history of cannabinoid hyperemesis syndrome presents with 3 days of constant daily vomiting and feeling dehydrated. She states she has these symptoms every few months. She denies fevers or chills, no loss of consciousness, no complaints of chest pain or shortness of breath, no diarrhea. ROS All systems reviewed and are negative except as per history of present illness. Medications Home Meds Reported Medications Zolpidem Tartrate* (Zolpidem Tartrate*) 5 Mg Tablet, 5 MG PO QHS PRN for INSOMNIA, #30 TAB 12/04/18 Pantoprazole* (Pantoprazole*) 40 Mg Tablet., 40 MG PO AC BREAKFAST, TAB 12/04/18 Zinc Oxide/Petrolatum,White (Remedy Phytoplex Z-Guard Paste) 113 Gm Paste..g., 113 GM TP BID PRN for PRN 12/04/18 Magnesium Hydroxide* (Milk Of Magnesia*) 400 Mg/5 Ml Oral.susp, 30 ML PO QHS, ML 12/04/18 Hydrocodone/Acetaminophen ([place] 5-325 Tablet) 1 Each Tablet, 1 EACH PO Q4H PRN for PAIN 4-03/05, TAB 12/04/18 Acetaminophen* (Acetaminophen*) 650 Mg Tablet, 650 MG PO Q6H PRN for MILD PAIN LEVEL 1-3, #30 TAB 12/04/18 Discontinued Scripts Hydrocodone Bit-Acetaminophen (Hydrocodone Bit-APAP) 5-325MG Tablet, 1 TAB PO Q6H PRN for PAIN, #30 TAB Prov:BRUNA SAMUEL MD 03/31/18 Pantoprazole* (Protonix*) 40 Mg Tablet., 40 MG PO DAILY, #30 TAB Prov:BRUNA SAMUEL MD 03/31/18 Ondansetron (Zofran Odt) 4 Mg Tab.rapdis, 4 MG PO Q6 PRN for NAUSEA, #30 Prov:BRUNA SAMUEL MD 03/31/18 Ondansetron Hcl* (Zofran*) 4 Mg Tablet, 4 MG PO Q6H for NAUSEA AND/OR VOMITING, #30 TAB Prov:LAVERN BUCK MD 11/16/17 Dicyclomine HCl (Dicyclomine HCl) 20 Mg Tablet, 20 MG PO BID for 7 Days, #14 Prov:LAVERN BUCK MD 11/16/17 Metoclopramide* (Reglan*) 10 Mg Tablet, 10 MG PO Q6 PRN for NAUSEA AND/OR VOMITING, #22 TAB Prov:HEMANT BOWLING DO 03/16/17 Lorazepam* (Ativan*) 0.5 Mg Tablet, 0.5 MG PO Q8H PRN for VOMITTING, #5 TAB Prov:ADRIEL PEREIRAMARVA DO 03/14/17 Allergies Allergies: Coded Allergies: banana (Verified Allergy, Severe, Anaphylactic, 12/04/18) Contact Dermatitis then Anaphylactic Reaction milk (Verified Allergy, Intermediate, Sinus Reaction and Lower Intestinal distress, 12/04/18) tetracycline (Verified Allergy, Mild, 12/04/18) PMhx/Soc Cannabinoid hyperemesis syndrome, anxiety History of Surgery: Yes Anesthesia Reaction: No Hx Neurological Disorder: No Hx Respiratory Disorders: No Hx Cardiac Disorders: No Hx Psychiatric Problems: No Hx Miscellaneous Medical Probl: No Hx Alcohol Use: Yes Hx Substance Use: Yes (Cannibis ) Hx Tobacco Use: Yes FmHx Family History: No diabetes Physical Exam Vitals Vital Signs Date Temp Pulse Resp B/P (MAP) Pulse Ox O2 O2 Flow FiO2 Time Delivery Rate 12/04/18 98.1 104 16 134/95 99 Room Air 16:48 (108) 12/04/18 99 16 129/90 98 Room Air 2.0 15:09 (103) 12/04/18 98.3 115 19 161/93 99 11:46 (115) Physical Exam GENERAL: Well-developed, well-nourished, appears dehydrated, afebrile HEENT: Dry mucous membranes, pink conjunctiva, no cervical spine tenderness or step-off deformities, no goiter, no jaundice or icterus, extraocular movements intact without pain. No submandibular induration, and no pharyngeal erythema NEURO: Alert and oriented 3, cranial nerves II through XII intact bilaterally, pupils equal round reactive to light, no focal deficits or facial asymmetry, sensation intact distally Strength 5/5 in upper and lower extremities bilateral ly CARDIAC: Tachycardic and regular LUNGS: Clear bilaterally no wheezing crackles or stridor ABDOMEN: Soft nontender, no guarding, no rigidity, no rebound, no psoas sign no obturator sign. SKIN: Warm and dry to touch, no abrasions, contusions, or hematomas, no lacerations, no ecchymosis, no target lesions, and without ulcers EXTREMITIES: No clubbing cyanosis or edema, calves are bilaterally symmetrical, no Homans sign, no popliteal cord sign. Distal pulses equal and bilateral PSYCH: Normal affect without agitation or irritability Result Diagram: 12/04/18 1228 12/04/18 1228 Results 24 hrs Laboratory Tests Test 12/04/18 12:28 White Blood Count 21.0 10^3/ul Red Blood Count 4.53 10^6/ul Hemoglobin 13.8 g/dl Hematocrit 38.7 % Mean Corpuscular Volume 85.4 fl Mean Corpuscular Hemoglobin 30.5 pg Mean Corpuscular Hemoglobin Concent 35.7 g/dl Red Cell Distribution Width 13.2 % Platelet Count 664 10^3/UL Mean Platelet Volume 8.9 fl Immature Granulocytes % 3.900 % Neutrophils % % Segmented Neutrophils % (Manual) 84 % Band Neutrophils % (Manual) 7 % Lymphocytes % % Monocytes % % Monocytes % (Manual) 8 % Eosinophils % % Basophils % % Metamyelocytes % (manual) 1 % Nucleated Red Blood Cells % 0.0 /100WBC Immature Granulocytes # 0.830 10^3/ul Neutrophils # 10^3/ul Neutrophils # (Manual) 17.9 10^3/ul Band Neutrophils # 1.4 10^3/ul Lymphocytes # 10^3/ul Monocytes # 10^3/ul Monocytes # (Manual) 1.6 10^3/ul Eosinophils # 10^3/ul Basophils # 10^3/ul Metamyelocytes # 0.2 10^3/ul Nucleated Red Blood Cells # 10^3/ul Platelet Estimate INCREASED Poikilocytosis 1+ Sodium Level 130 mmol/L Potassium Level 2.5 mmol/L Chloride Level 82 mmol/L Carbon Dioxide Level 26 mmol/L Anion Gap 22 Blood Urea Nitrogen 22 mg/dl Creatinine 1.16 mg/dl Est Glomerular Filtrat Rate mL/min 47 mL/min Glucose Level 136 mg/dl Calcium Level 9.6 mg/dl Total Bilirubin 0.9 mg/dl Direct Bilirubin 0.00 mg/dl Indirect Bilirubin 0.9 mg/dl Aspartate Amino Transf (AST/SGOT) 28 IU/L Alanine Aminotransferase (ALT/SGPT) 26 IU/L Alkaline Phosphatase 115 IU/L Troponin I < 0.012 ng/ml Total Protein 8.1 g/dl Albumin 4.7 g/dl Globulin 3.40 g/dl Albumin/Globulin Ratio 1.38 Lipase 116 U/L Current Medications Medications Dose Sig/Estee Start Time Status Last (Trade) Ordered Route PRN Stop Time Admin Dose Reason Admin Lactated 1,000 ml @ Q1H STAT 12/04/18 DC 12/04/18 Ringer's 1,000 mls/hr IV 12:12 12:28 12/04/18 13:11 Ondansetron 4 mg ONCE STAT 12/04/18 DC 12/04/18 HCl (Zofran IV 12:12 12:28 Inj) 12/04/18 12:19 Ketorolac 15 mg ONCE STAT 12/04/18 DC 12/04/18 Tromethamine IV 12:12 12:28 (Toradol) 12/04/18 12:19 Magnesium 50 ml @ 25 ONCE ONCE 12/04/18 DC 12/04/18 Sulfate mls/hr IVPB 13:00 14:11 12/04/18 14:59 Potassium 100 ml @ Q2H IVPB 12/04/18 12/04/18 Chloride 50 mls/hr 13:30 16:04 12/04/18 21:29 10 mg ONCE ONCE 12/04/18 DC 12/04/18 Metoclopramid IV 13:30 13:33 e HCl 12/04/18 13:31 (Reglan) IV Flush 3 ml PER 12/04/18 (NS 3 ml) PROTOCOL IV 17:00 Ondansetron 4 mg Q6H PRN 12/04/18 12/04/18 HCl (Zofran IV 17:00 17:11 Inj) NAUSEA/VOMITI NG 650 mg Q6H PRN 12/04/18 Acetaminophen PO .PAIN 1-3 17:00 (Tylenol OR TEMP Tab) 1 tab Q6H PRN 12/04/18 Acetaminophen PO .MOD PAIN 17:00 / 4-6 Hydrocodone Bitart ([place] (5/325)) Morphine 2 mg Q4H PRN 12/04/18 12/04/18 Sulfate IV .SEVERE 17:00 17:11 (morphine) PAIN 7-10 Docusate 100 mg Q12H PRN 12/04/18 Sodium PO 17:00 (Colace) .CONSTIPATION Zolpidem 5 mg QHS PRN 12/04/18 Tartrate PO .INSOMNIA 21:00 (Ambien) Potassium 1,000 ml @ Q8H IV 12/04/18 Chloride 40 125 mls/hr 18:30 meq/ Sodium Chloride Procedures/MDM IV line was established patient was placed on monitor tech rhythm strip revealed a sinus tachycardia at 110 bpm with upright P and T waves. Patient was afebrile I administered 1 L normal saline IV, Toradol 15 mg IV, Zofran 4 mg IV. EKG was performed, read by me revealed a sinus tachycardia at 104 bpm, normal axis, narrow QRS complex, no concerning ST elevations or depressions noted, prolonged QT of 533 ms I administered magnesium 2 g IV x1 For continued nausea and vomiting I administered Reglan 10 mg IV x1 CBC reveals a leukocytosis which is chronic, electrolytes revealed dehydration and severe hypokalemia at 2.5, liver function tests normal, troponin negative For hypokalemia administered potassium chloride IV supplementation Patient will be admitted to telemetry setting for continued hydration and electrolyte supplementation Departure Diagnosis: Primary Impression: Cannabinoid hyperemesis syndrome Additional Impressions: Acute dehydration Prolonged QT interval Acute hypokalemia Condition: CB Guzman MD Dec 04, 2018 12:47
[2018-12-04] MEDS ORDERED: MAGNESIUM SULFATE 2 GM/50 ML 50 ML IVPB ONE (13:00)
[2018-12-04] MEDS ORDERED: METOCLOPRAMIDE 10 MG INJ IV ONE (13:30)
[2018-12-04] MEDS ORDERED: ACET-2047 PO (13:39)
[2018-12-04] MEDS ORDERED: HYDR-4011 PO (13:40)
[2018-12-04] MEDS ORDERED: MAGN400O19 PO (13:41)
[2018-12-04] MEDS ORDERED: PANT40TA4 PO (13:44)
[2018-12-04] MEDS ORDERED: [UNRECOGNIZED DRUG - CODE] TP (13:44)
[2018-12-04] MEDS ORDERED: ZOLP5TAB7 PO (13:46)
[2018-12-04] MEDS: POTASSIUM CHLORIDE 100 ML IVPB SCH ×4 (14:11→19:54)
--- NOTE | 2018-12-04 16:44 | HP ---
Date/Time of Note Date/Time of Note DATE: 12/04/18 TIME: 16:41 Assessment/Plan VTE Prophylaxis SCD applied (from Nsg): Yes Pharmacological prophylaxis: NA/contraindicated Pharm contraindication: low risk/ambulating Lines/Catheters IV Catheter Type (from Nrsg): Mid Line Assessment/Plan Hospital Course 1. Cyclical vomiting syndrome secondary to marijuana IV fluids Zofran 2. Hypokalemia Replete 3. Hyponatremia Normal saline 4. Chronic leukocytosis Monitor Follow-up in [facility] 5. History of pancreatitis Lipase is normal Prophylaxis: SCDs Result Diagram: 12/04/18 1228 12/04/18 1228 Results 24hrs Laboratory Tests Test 12/04/18 12:28 White Blood Count 21.0 #H Red Blood Count 4.53 Hemoglobin 13.8 Hematocrit 38.7 Mean Corpuscular Volume 85.4 Mean Corpuscular Hemoglobin 30.5 Mean Corpuscular Hemoglobin Concent 35.7 Red Cell Distribution Width 13.2 Platelet Count 664 #H Mean Platelet Volume 8.9 Immature Granulocytes % 3.900 H Neutrophils % Segmented Neutrophils % (Manual) 84 H Band Neutrophils % (Manual) 7 H Lymphocytes % Monocytes % Monocytes % (Manual) 8 Eosinophils % Basophils % Metamyelocytes % (manual) 1 H Nucleated Red Blood Cells % 0.0 Immature Granulocytes # 0.830 H Neutrophils # Neutrophils # (Manual) 17.9 H Band Neutrophils # 1.4 H Lymphocytes # Monocytes # Monocytes # (Manual) 1.6 H Eosinophils # Basophils # Metamyelocytes # 0.2 H Nucleated Red Blood Cells # Platelet Estimate INCREASED Poikilocytosis 1+ Sodium Level 130 L Potassium Level 2.5 *L Chloride Level 82 L Carbon Dioxide Level 26 Anion Gap 22 H Blood Urea Nitrogen 22 H Creatinine 1.16 H Est Glomerular Filtrat Rate mL/min 47 L Glucose Level 136 Calcium Level 9.6 Total Bilirubin 0.9 Direct Bilirubin 0.00 Indirect Bilirubin 0.9 Aspartate Amino Transf (AST/SGOT) 28 Alanine Aminotransferase (ALT/SGPT) 26 Alkaline Phosphatase 115 Troponin I < 0.012 Total Protein 8.1 Albumin 4.7 Globulin 3.40 H Albumin/Globulin Ratio 1.38 Lipase 116 HPI/ROS Admit Date/Time Admit Date/Time December 04, 2018 Hx of Present Illness Patient is a 63-year-old female with a history of pancreatitis, IBS, cannabis associated hyperemesis and chronic leukocytosis. Patient states that she smokes cannabis for her IBS and last smoked several days ago when she began feeling nauseous. Patient has been unable to tolerate any food or liquids, in the ER patient's potassium and sodium were low with an elevated creatinine. Patient has no other complaints at this time. ROS Constitutional: no complaints, improved Eyes: no complaints ENT: no complaints Respiratory: no complaints Cardiovascular: no complaints Gastrointestinal: nausea, vomiting Genitourinary: no complaints Musculoskeletal: no complaints Skin: no complaints Neurologic: no complaints Endocrine: no complaints Lymphatic: no complaints Psychological: no complaints, nl mood/affect Immunologic: no complaints PMH/Family/Social Past Medical History As per HPI Medications Current Medications Potassium Chloride 100 ml @ 50 mls/hr Q2H IVPB Last administered on 12/04/18at 16:04; Admin Dose 50 MLS/HR; Start 12/04/18 at 13:30; Stop 12/04/18 at 21:29 Coded Allergies: banana (Verified Allergy, Severe, Anaphylactic, 12/04/18) Contact Dermatitis then Anaphylactic Reaction milk (Verified Allergy, Intermediate, Sinus Reaction and Lower Intestinal distress, 12/04/18) tetracycline (Verified Allergy, Mild, 12/04/18) Past Surgical History Past Surgical Hx: other Family History Significant Family History: no pertinent family hx Social History Alcohol Use: rarely Smoking Status: Never smoker Drug Use: none Exam/Review of Systems Vital Signs Vitals Vital Signs Date Temp Pulse Resp B/P (MAP) Pulse Ox O2 O2 Flow FiO2 Time Delivery Rate 12/04/18 99 16 129/90 98 Room Air 2.0 15:09 (103) 12/04/18 98.3 11:46 Exam Constitutional: alert, oriented Respiratory: clear to auscultation Cardiovascular: regular rate and rhythm Gastrointestinal: soft; No distended Musculoskeletal: nl extremities to inspection NILDA CANO Dec 04, 2018 16:44
[2018-12-04] MEDS ORDERED: DOCUSATE SODIUM 100 MG CAP PO PRN (17:00)
[2018-12-04] MEDS ORDERED: HYDROCODONE/APAP (5/325) TAB PO PRN (17:00)
[2018-12-04] MEDS ORDERED: NACL 0.9% 3 ML SYG IV SCH (17:00)
[2018-12-04] MEDS ORDERED: ACETAMINOPHEN 325 MG TAB PO PRN (17:00)
[2018-12-04] MEDS: ONDANSETRON 4 MG INJ IV PRN (17:11)
[2018-12-04] MEDS: morphine 2 MG INJ IV PRN (17:11)
[2018-12-04 17:34] VITALS: Ht 152.4 cm; Wt 63.7 kg
[2018-12-04 17:44] VITALS: BP 102/65; PULSE 98; RESP 18
[2018-12-04 18:44] VITALS: PULSE 102
[2018-12-04 20:00] VITALS: PULSE 120
[2018-12-04] MEDS: POTASSIUM CHLORIDE 40 MEQ in SOD CHLORIDE 0.9% 1,000 ML IV SCH (20:34)
[2018-12-04] MEDS ORDERED: ZOLPIDEM 5 MG TAB PO PRN (21:00)
[2018-12-05] VITALS (13 sets, daily range): BP systolic 134–211; BP diastolic 82–135; PULSE 78–126; RESP 16–20
[2018-12-05] MEDS: POTASSIUM CHLORIDE 40 MEQ in SOD CHLORIDE 0.9% 1,000 ML IV SCH ×3 (02:30→17:57)
[2018-12-05] MEDS: ONDANSETRON 4 MG INJ IV PRN ×3 (08:09→19:45)
[2018-12-05] MEDS: morphine 2 MG INJ IV PRN ×3 (11:41→19:45)
[2018-12-05] MEDS ORDERED: LORAZEPAM 2 MG INJ IV ONE (12:00)
--- NOTE | 2018-12-05 15:08 | PN ---
Date/Time of Note Date/Time of Note DATE: 12/05/18 TIME: 15:07 Assessment/Plan VTE Prophylaxis Risk score (from Ns)>0 risk: 2 SCD applied (from Ns): Yes Pharmacological prophylaxis: NA/contraindicated Pharm contraindication: low risk/ambulating Lines/Catheters [facility] Urinary Cath still in place: No Assessment/Plan Hospital Course 1. Cyclical vomiting syndrome secondary to marijuana IV fluids Zofran Patient tolerating clears, advance to soft 2. Hypokalemia Replete 3. Hyponatremia Normal saline 4. Chronic leukocytosis Monitor Follow-up in [facility] 5. History of pancreatitis Lipase is normal Prophylaxis: SCDs DC planning: Advance diet to soft, anticipate DC home tomorrow Result Diagram: 12/05/1815 12/05/18 0615 Results 24hrs Laboratory Tests Test 12/05/18 06:15 White Blood Count 17.1 H Red Blood Count 4.38 Hemoglobin 13.3 Hematocrit 38.6 Mean Corpuscular Volume 88.1 Mean Corpuscular Hemoglobin 30.4 Mean Corpuscular Hemoglobin Concent 34.5 Red Cell Distribution Width 13.9 Platelet Count 590 H Mean Platelet Volume 8.7 Immature Granulocytes % 5.000 H Neutrophils % 68.5 Lymphocytes % 17.3 Monocytes % 8.4 Eosinophils % 0.2 Basophils % 0.6 Nucleated Red Blood Cells % 0.0 Immature Granulocytes # 0.860 H Neutrophils # 11.7 H Lymphocytes # 3.0 H Monocytes # 1.4 H Eosinophils # 0.0 Basophils # 0.1 Nucleated Red Blood Cells # 0.0 Sodium Level 133 L Potassium Level 3.3 L Chloride Level 95 #L Carbon Dioxide Level 28 Anion Gap 10 # Blood Urea Nitrogen 14 Creatinine 1.04 H Est Glomerular Filtrat Rate mL/min 54 L Glucose Level 91 # Hemoglobin A1c 5.5 Calcium Level 9.0 Phosphorus Level 3.5 Magnesium Level 2.6 H Total Bilirubin 0.8 Direct Bilirubin 0.00 Indirect Bilirubin 0.8 Aspartate Amino Transf (AST/SGOT) 25 Alanine Aminotransferase (ALT/SGPT) 24 Alkaline Phosphatase 95 Total Protein 6.9 # Albumin 3.8 Globulin 3.10 Albumin/Globulin Ratio 1.22 Subjective 24 Hr Interval Summary Gastrointestinal: nausea Exam/Review of Systems Exam Vitals Vital Signs Date Temp Pulse Resp B/P (MAP) Pulse Ox O2 O2 Flow FiO2 Time Delivery Rate 12/05/18 126 13:18 12/05/18 97.4 18 198/122 98 Room Air 11:23 (147) 12/04/18 2.0 15:09 Intake and Output 12/04/18 12/04/18 12/05/18 1515:00 23:00 07:00 IntakeIntake Total 150 ml 1875 ml BalanceBalance 150 ml 1875 ml Constitutional: alert, oriented Respiratory: clear to auscultation Cardiovascular: regular rate and rhythm Gastrointestinal: soft; No distended Musculoskeletal: nl extremities to inspection Results Results 24hrs Laboratory Tests Test 12/05/18 06:15 White Blood Count 17.1 H Red Blood Count 4.38 Hemoglobin 13.3 Hematocrit 38.6 Mean Corpuscular Volume 88.1 Mean Corpuscular Hemoglobin 30.4 Mean Corpuscular Hemoglobin Concent 34.5 Red Cell Distribution Width 13.9 Platelet Count 590 H Mean Platelet Volume 8.7 Immature Granulocytes % 5.000 H Neutrophils % 68.5 Lymphocytes % 17.3 Monocytes % 8.4 Eosinophils % 0.2 Basophils % 0.6 Nucleated Red Blood Cells % 0.0 Immature Granulocytes # 0.860 H Neutrophils # 11.7 H Lymphocytes # 3.0 H Monocytes # 1.4 H Eosinophils # 0.0 Basophils # 0.1 Nucleated Red Blood Cells # 0.0 Sodium Level 133 L Potassium Level 3.3 L Chloride Level 95 #L Carbon Dioxide Level 28 Anion Gap 10 # Blood Urea Nitrogen 14 Creatinine 1.04 H Est Glomerular Filtrat Rate mL/min 54 L Glucose Level 91 # Hemoglobin A1c 5.5 Calcium Level 9.0 Phosphorus Level 3.5 Magnesium Level 2.6 H Total Bilirubin 0.8 Direct Bilirubin 0.00 Indirect Bilirubin 0.8 Aspartate Amino Transf (AST/SGOT) 25 Alanine Aminotransferase (ALT/SGPT) 24 Alkaline Phosphatase 95 Total Protein 6.9 # Albumin 3.8 Globulin 3.10 Albumin/Globulin Ratio 1.22 Medications Medication Current Medications IV Flush (NS 3 ml) 3 ml PER PROTOCOL IV ; Start 12/04/18 at 17:00 Ondansetron HCl (Zofran Inj) 4 mg Q6H PRN IV NAUSEA/VOMITING Last administered on 12/05/18at 14:02; Admin Dose 4 MG; Start 12/04/18 at 17:00 Acetaminophen (Tylenol Tab) 650 mg Q6H PRN PO .PAIN 1-3 OR TEMP; Start 12/04/18 at 17:00 Acetaminophen/ Hydrocodone Bitart ([place] (5/325)) 1 tab Q6H PRN PO .MOD PAIN 4- 6; Start 12/04/18 at 17:00 Morphine Sulfate (morphine) 2 mg Q4H PRN IV .SEVERE PAIN 7-10 Last administered on 12/05/18at 11:41; Admin Dose 2 MG; Start 12/04/18 at 17:00 Docusate Sodium (Colace) 100 mg Q12H PRN PO .CONSTIPATION; Start 12/04/18 at 17:00 Zolpidem Tartrate (Ambien) 5 mg QHS PRN PO .INSOMNIA; Start 12/04/18 at 21:00 Potassium Chloride 40 meq/ Sodium Chloride 1,000 ml @ 125 mls/hr Q8H IV Last administered on 12/05/18at 10:08; Admin Dose 125 MLS/HR; Start 12/04/18 at 18:30 NILDA CANO Dec 05, 2018 15:08
[2018-12-05] MEDS ORDERED: LABETALOL HCL 20MG INJ IV PRN (16:00)
[2018-12-05] MEDS ORDERED: LABETALOL HCL 20MG INJ IV ONE (16:00)
[2018-12-05] MEDS ORDERED: KETOROLAC 15 MG INJ IV STA (18:19)
[2018-12-06] VITALS: BP 115/80; PULSE 86; RESP 18
[2018-12-06] MEDS: morphine 2 MG INJ IV PRN (00:02)
[2018-12-06 03:34] VITALS: BP 117/86; PULSE 85; RESP 18
[2018-12-06 04:00] VITALS: PULSE 89
[2018-12-06] MEDS: POTASSIUM CHLORIDE 40 MEQ in SOD CHLORIDE 0.9% 1,000 ML IV SCH (04:04)
[2018-12-06 07:07] VITALS: BP 120/84; PULSE 81; RESP 16
[2018-12-06 08:06] VITALS: PULSE 75
--- NOTE | 2018-12-06 10:36 | PDOCDIS ---
Discharge Instructions CONDITION [id number] Patient Condition: [id number] Good HOME CARE INSTRUCTIONS: [id number] Diet Instructions: [id number] Regular ACTIVITY: [id number] Activity Restrictions: [id number] No Restrictions FOLLOW UP/APPOINTMENTS Follow-up Plan FOLLOW UP WITH YOUR PCP IN 1-2 WEEKS NILDA CANO Dec 06, 2018 10:36
[2018-12-06 11:44] VITALS: BP 123/80; PULSE 87; RESP 16
--- NOTE | 2018-12-06 12:00 | DS ---
Date/Time of Note Date/Time of Note DATE: 12/06/18 TIME: 11:57 Discharge Summary Admission/Discharge Info Admit Date/Time Dec 04, 2018 at 13:51 Discharge Date/Time December 06, 2018 Discharge Diagnosis 1. Cyclical vomiting syndrome secondary to marijuana Patient now tolerating a p.o. diet Status post IV fluids and Zofran Cessation of cannabis advised 2. Hypokalemia Repleted 3. Hyponatremia Status post normal saline 4. Chronic leukocytosis Monitor 5. History of pancreatitis Lipase is normal 6. Hypertension secondary to distress Blood pressure now stable with resolution of nausea vomiting No indication for meds upon discharge Patient Condition: Good Hospital Course Patient is a 63-year-old female with a history of pancreatitis, IBS, cannabis associated hyperemesis and chronic leukocytosis. Patient presented with intractable nausea vomiting and inability to tolerate a p.o. diet. Patient was given Zofran as well as IV fluids, patient was also given morphine for abdominal pain. Patient blood pressure would rise when in distress but stabilized once symptoms of nausea vomiting as well as abdominal pain resolved. Patient was eventually able to tolerate p.o. diet, potassium was replaced. Patient was stable for DC, on the day of discharge patient's vitals, labs and physical exam are stable. Cessation of marijuana was advised. Home Meds Reported Medications Zolpidem Tartrate* (Zolpidem Tartrate*) 5 Mg Tablet, 5 MG PO QHS PRN for INSOMNIA, #30 TAB 12/04/18 Pantoprazole* (Pantoprazole*) 40 Mg Tablet.dr, 40 MG PO AC BREAKFAST, TAB 12/04/18 Zinc Oxide/Petrolatum,White (Remedy Phytoplex Z-Guard Paste) 113 Gm Paste..g., 113 GM TP BID PRN for PRN 12/04/18 Magnesium Hydroxide* (Milk Of Magnesia*) 400 Mg/5 Ml Oral.susp, 30 ML PO QHS, ML 12/04/18 Hydrocodone/Acetaminophen ([place] 5-325 Tablet) 1 Each Tablet, 1 EACH PO Q4H PRN for PAIN 4-03/05, TAB 12/04/18 Acetaminophen* (Acetaminophen*) 650 Mg Tablet, 650 MG PO Q6H PRN for MILD PAIN LEVEL 1-3, #30 TAB 12/04/18 Discontinued Scripts Hydrocodone Bit-Acetaminophen (Hydrocodone Bit-APAP) 5-325MG Tablet, 1 TAB PO Q6H PRN for PAIN, #30 TAB Prov:BRUNA SAMUEL MD 03/31/18 Pantoprazole* (Protonix*) 40 Mg Tablet.dr, 40 MG PO DAILY, #30 TAB Prov:BRUNA SAMUEL MD 03/31/18 Ondansetron (Zofran Odt) 4 Mg Tab.rapdis, 4 MG PO Q6 PRN for NAUSEA, #30 Prov:BRUNA SAMUEL MD 03/31/18 Ondansetron Hcl* (Zofran*) 4 Mg Tablet, 4 MG PO Q6H for NAUSEA AND/OR VOMITING, #30 TAB Prov:LAVERN BUCK MD 11/16/17 Dicyclomine HCl (Dicyclomine HCl) 20 Mg Tablet, 20 MG PO BID for 7 Days, #14 Prov:LAVERN UBCK MD 11/16/17 Metoclopramide* (Reglan*) 10 Mg Tablet, 10 MG PO Q6 PRN for NAUSEA AND/OR VOMITING, #22 TAB Prov:HEMANT BOWLING DO 03/16/17 Lorazepam* (Ativan*) 0.5 Mg Tablet, 0.5 MG PO Q8H PRN for VOMITTING, #5 TAB Prov:KELLEY PEREIRA DO 03/14/17 Follow-up Plan FOLLOW UP WITH YOUR PCP IN 1-2 WEEKS Primary Care Provider [facility] Time spent on discharge: > 30 minutes NILDA CANO Dec 06, 2018 12:00
== END 2018-12-06 12:05 | disposition home or self-care (01) | DRG 103 ==
LOC: E/R 11:43 → TEL 13:51
PROVIDERS: ADMIT Internal Medicine; ATTEND Internal Medicine
DX: G43.A0 Cyclical vomiting, in migraine, not intractable (principal); E87.1 Hypo-osmolality and hyponatremia; T40.7X5A Adverse effect of cannabis (derivatives), initial encounter; E87.6 Hypokalemia; F12.90 Cannabis use, unspecified, uncomplicated; Z72.0 Tobacco use; E86.0 Dehydration; I45.81 Long QT syndrome; D72.829 Elevated white blood cell count, unspecified; I10 Essential (primary) hypertension
CPT/HCPCS: 36415; 80048; 80053; 83036; 83690; 83735; 84100; 84484; 85025; 93005; 96374; 96375; J1885; J2060; J2270; J2405; J2765; J3475; J3480; J7030; J7120